=== PATIENT | male | born 1975 | race Caucasian/White ===

== ENCOUNTER 2023-10-06 08:22 | Emergency (ER) | payer BC ==
[~2023-10-06] VITALS: Ht 182.9 cm; Wt 105.0 kg
[2023-10-06 09:37] LABS: Urine Bacteria None Seen /hpf (None Seen)
[2023-10-06 10:08] VITALS: TEMP 97.8
[2023-10-06 10:31] LABS: Urine Blood 1+ /uL (Negative); Urine Clarity Clear (Clear); Urine Color Light-Yellow (Yellow); Urine Protein, UAD 1+ (Negative); Urine Specific Gravity 1.026 (1.001-1.035); Urine Urobilinogen Normal (Negative); Urine WBC 167 /hpf (0 - 3)
[2023-10-06] MEDS ORDERED: cefTRIAXone SOD 1,000 MG VL IM ONE (10:45)
[2023-10-06] MEDS ORDERED: METOPROLOL TARTRATE 50 MG TAB PO ONE (10:45)
[2023-10-06] MEDS: InsuLIN REG 1unit/0.01ml Soln (100units/ml) SC ONE (10:56)
[2023-10-06] MEDS ORDERED: LABETALOL HCL 20 MG/4 ML VL IV ONE (11:00)
[2023-10-06] MEDS: SODIUM CHLORIDE 0.9% 1,000 ML IV ONE (11:14)
[2023-10-06 11:19] LABS: Basophils # (auto) 0.1 10 ^3/uL (0-0.2); Eosinophils # (auto) 0.1 10 ^3/uL (0-0.8); Hematocrit 47.9 % (41.0-53.0); Hemoglobin 16.4 g/dL (13.5-17.5); Lymphocytes # (auto) 1.2 10 ^3/uL (0.4-5.4); Lymphocytes % (auto) 13.2 % (10.0-50.0); Mean Corpuscular Hemoglobin 30.6 pg (28.0-32.0); Mean Corpuscular Hgb Conc. 34.1 g/dL (32.0-36.0); Mean Corpuscular Volume 89.7 fL (80.0-100.0); Monocytes # (auto) 0.8 10 ^3/uL (0-1.3); Monocytes % (auto) 8.8 % (0.0-12.0); Neutrophils # (auto) 6.9 10 ^3/uL (1.6-8.6); Nucleated Red Blood Cells % 0.1 %; Platelet Count (auto) 356 10^3/uL (140-450); Red Blood Cells 5.35 10^6/uL (4.5-5.90); Red Cell Distribution Width 13.7 % (11.8-14.3); White Blood Cell 9.1 10^3/uL (4.4-10.8)
[2023-10-06] MEDS: cefTRIAXone 1GM/50ML D5W 50 ML IV ONE (11:26)
[2023-10-06] MEDS: LABETALOL HCL 20 MG/4 ML VL IV ONE ×2 (11:28→12:20)
[2023-10-06 11:44] LABS: Chloride 100 mmol/L (98-107); Potassium 3.6 mmol/L (3.5-5.1); Sodium 133 mmol/L (136-145)
[2023-10-06 11:45] LABS: Anion Gap 7 (5-15); Calcium 9.8 mg/dL (8.7-10.4); Carbon Dioxide 26 mmol/L (20-30)
[2023-10-06 11:50] LABS: BUN/Creatinine Ratio 11.9 (10.0-20.0); Blood Urea Nitrogen 10 mg/dL (9-23); Glucose 290 mg/dL (74-106)
[2023-10-06] MEDS: InsuLIN REG 1unit/0.01ml Soln (100units/ml) IV ONE (12:41)
[2023-10-06 13:06] VITALS: BP 138/96; PULSE 99; RESP 16; O2SAT 98
[2023-10-06] MEDS ORDERED: CIPR-173 PO (13:10)
[2023-10-06] MEDS ORDERED: MET50T PO (13:10)
[2023-10-06] MEDS ORDERED: METF-370 PO (13:10)
== END 2023-10-06 13:09 | disposition home or self-care (01) ==
LOC: ER 08:22
DX: N39.0 Urinary tract infection, site not specified (principal); E11.9 Type 2 diabetes mellitus without complications; I10 Essential (primary) hypertension; Z79.899 Other long term (current) drug therapy
CPT/HCPCS: 36415; 80048; 81001; 82962; 83036; 85025; 96365; 96375; 96376; 99284; J0696; J1815; J7030

== ENCOUNTER 2023-10-17 09:03 | Inpatient (IN) | payer BC ==
[~2023-10-17] VITALS: Ht 182.9 cm; Wt 101.6 kg
[~2023-10-17 09:03] MED LIST: CIPR-173 PO; MET50T PO; METF-370 PO
[2023-10-17 10:16] LABS: Urine Bacteria FEW /hpf (None Seen); Urine Blood Negative /uL (Negative); Urine Clarity Clear (Clear); Urine Color Light-Yellow (Yellow); Urine Protein, UAD Negative (Negative); Urine Specific Gravity 1.008 (1.001-1.035); Urine Urobilinogen Normal (Negative); Urine WBC 6 /hpf (0 - 3)
[2023-10-17 10:47] LABS: Basophils # (auto) 0.1 10 ^3/uL (0-0.2); Basophils % (auto) 0.8 % (0.0-2.0); Eosinophils # (auto) 0.1 10 ^3/uL (0-0.8); Eosinophils % (auto) 1.1 % (0.0-7.0); Hematocrit 47.6 % (41.0-53.0); Hemoglobin 16.2 g/dL (13.5-17.5); Lymphocytes # (auto) 1.5 10 ^3/uL (0.4-5.4); Lymphocytes % (auto) 11.4 % (10.0-50.0); Mean Corpuscular Hemoglobin 30.2 pg (28.0-32.0); Mean Corpuscular Hgb Conc. 34.1 g/dL (32.0-36.0); Mean Corpuscular Volume 88.5 fL (80.0-100.0); Monocytes # (auto) 0.9 10 ^3/uL (0-1.3); Monocytes % (auto) 6.6 % (0.0-12.0); Neutrophils # (auto) 10.7 10 ^3/uL (1.6-8.6); Neutrophils % (auto) 80.1 % (37.0-80.0); Nucleated Red Blood Cells % 0.1 %; Platelet Count (auto) 362 10^3/uL (140-450); Red Blood Cells 5.38 10^6/uL (4.5-5.90); Red Cell Distribution Width 12.8 % (11.8-14.3); White Blood Cell 13.3 10^3/uL (4.4-10.8)
[2023-10-17 11:01] LABS: Alanine Aminotransferase 14 U/L (7-40); Alkaline Phosphatase 110 U/L (46-116); Anion Gap 10 (5-15); Aspartate Aminotransferase 8 U/L (13-40); BUN/Creatinine Ratio 10.5 (10.0-20.0); Blood Urea Nitrogen 9 mg/dL (9-23); Carbon Dioxide 26 mmol/L (20-30); Chloride 98 mmol/L (98-107); Glucose 331 mg/dL (74-106); Potassium 3.6 mmol/L (3.5-5.1); Sodium 134 mmol/L (136-145)
[2023-10-17 11:02] LABS: Albumin 4.6 g/dL (3.2-4.8); Bilirubin, Total 0.8 mg/dL (0.2-1.0); Total Protein 8.2 g/dL (5.7-8.2)
[2023-10-17] MEDS: IOHEXOL 300 MG/ML 100ML BOTTLE IJ ONE (11:21)
[2023-10-17] MEDS ORDERED: HYDROmorphone HCL 2 MG/ML VL/or syr IV PRN (13:45)
[2023-10-17] MEDS ORDERED: DEXTROSE (50%) 50ML SYRG IV PRN (13:45)
[2023-10-17] MEDS ORDERED: ONDANSETRON HCL 4 MG/2 ML VIAL IV PRN (13:45)
[2023-10-17] MEDS ORDERED: ACETAMINOPHEN 325 MG TAB PO PRN (13:45)
[2023-10-17] MEDS: cefTRIAXone 1GM/50ML D5W 50 ML IV ONE (13:55)
[2023-10-17] MEDS: SODIUM CHLOR 0.9% PF (SALINE LOCK) 10ML VIAL/SYR IV SCH (14:00)
[2023-10-17] MEDS: CIPROFLOXACIN 400MG/200ML 200 ML IV SCH (14:00)
[2023-10-17 16:00] VITALS: PULSE 116; RESP 16; O2SAT 96
[2023-10-17] MEDS: InsuLIN REG 1unit/0.01ml Soln (100units/ml) SC SCH (17:00)
[2023-10-17] MEDS: ACCU-CHEK COMFORT CURVE STRIP VI SCH (17:00)
[2023-10-17] MEDS: HYDROcodone-ACET 5/325MG TAB PO PRN (18:25)
[2023-10-17 22:37] VITALS: PULSE 112; RESP 15; O2SAT 94
[2023-10-17 23:37] VITALS: BP 146/85; PULSE 112; RESP 15; TEMP 98.5; O2SAT 96
[2023-10-18] VITALS (7 sets, daily range): BP systolic 125–154; BP diastolic 82–95; PULSE 89–105; RESP 14–18; TEMP 97.6–98.6; O2SAT 92–97
[2023-10-18 08:07] LABS: Prostate Specific Antigen 0.6 ng/mL (0.0-4.0)
[2023-10-18 11:07] LABS: PSA Free 0.04 ng/mL
[2023-10-18] MEDS: cefTRIAXone 2GM/50ML D5W 50 ML IV SCH (11:56)
[2023-10-18 13:37] LABS: Chloride 99 mmol/L (98-107); Potassium 3.4 mmol/L (3.5-5.1); Sodium 134 mmol/L (136-145)
[2023-10-18 13:38] LABS: Anion Gap 5 (5-15); Calcium 9.4 mg/dL (8.7-10.4); Carbon Dioxide 30 mmol/L (20-30)
[2023-10-18 13:43] LABS: BUN/Creatinine Ratio 11.1 (10.0-20.0); Blood Urea Nitrogen 8 mg/dL (9-23); Glucose 291 mg/dL (74-106)
[2023-10-19] VITALS (8 sets, daily range): BP systolic 135–147; BP diastolic 81–94; PULSE 88–102; RESP 16–19; TEMP 97.8–99.2; O2SAT 91–97
[2023-10-19] MEDS: DOCUSATE SOD 100 MG CAP PO PRN (00:13)
[2023-10-19] MEDS: MORPHINE SULFATE INJ 2 MG/ml SYRG IV PRN (01:49)
[2023-10-19 07:33] LABS: Creatinine, Urine 38.16 mg/dL (30.0-125.0)
[2023-10-19] MEDS: DOCUSATE SOD 100 MG CAP PO SCH (13:45)
[2023-10-19] MEDS: SENNA 8.6 MG TAB PO SCH (21:07)
[2023-10-20] VITALS (7 sets, daily range): BP systolic 128–145; BP diastolic 77–96; PULSE 93–107; RESP 16–20; TEMP 98.2–98.6; O2SAT 93–96
[2023-10-20] MEDS: LACTULOSE 20Gm/30ML SOLN PO PRN (01:50)
[2023-10-20] MEDS ORDERED: HYDR-4902 PO (10:34)
[2023-10-20] MEDS ORDERED: NALO4SPR2 (10:34)
[2023-10-20] MEDS ORDERED: CEFD300C2 PO (10:34)
[2023-10-20] MEDS: BISACODYL 10 MG RECT SUPP PR ONE (11:30)
[2023-10-20] MEDS ORDERED: DEXTROSE (50%) 50ML SYRG IV PRN (17:15)
[2023-10-20] MEDS: glipiZIDE 5 MG TAB PO SCH (17:53)
[2023-10-20] MEDS: ACCU-CHEK COMFORT CURVE STRIP VI SCH (17:53)
[2023-10-20] MEDS: InsuLIN REG 1unit/0.01ml Soln (100units/ml) SC SCH ×2 (17:59→21:55)
[2023-10-20] MEDS: INSULIN LANTUS (GLARGINE) 1 /0.01ml (100units/ml) SC SCH (21:55)
[2023-10-21] VITALS (7 sets, daily range): BP systolic 127–154; BP diastolic 82–90; PULSE 84–99; RESP 18–20; TEMP 97.6–98.3; O2SAT 92–98
[2023-10-21] MEDS ORDERED: GLIP5TAB21 PO (14:16)
== END 2023-10-21 13:10 | disposition home or self-care (01) | DRG 872 ==
LOC: ER 09:03 → OVERFLOW 13:45 → EAST 21:45
PROVIDERS: ADMIT Internal Medicine; ATTEND Internal Medicine
DX: A41.9 Sepsis, unspecified organism (principal); N41.2 Abscess of prostate; N13.30 Unspecified hydronephrosis; I10 Essential (primary) hypertension; E11.65 Type 2 diabetes mellitus with hyperglycemia; R33.9 Retention of urine, unspecified; K59.00 Constipation, unspecified; N36.8 Other specified disorders of urethra
CPT/HCPCS: 36415; 74176; 74177; 80048; 80053; 81001; 82570; 82962; 84154; 84300; 85025; 87040; 87086; G0378; J1815

== ENCOUNTER 2023-11-16 06:29 | Inpatient (IN) | payer BC ==
[~2023-11-16] VITALS: Ht 182.9 cm; Wt 100.7 kg
[2023-11-16] VITALS (20 sets, daily range): BP systolic 113–144; BP diastolic 73–92; PULSE 91–104; RESP 12–19; TEMP 97.7–98.6; O2SAT 92–96
[~2023-11-16 06:29] MED LIST changes: +CEFD300C2 PO; -CIPR-173 PO; +GLIP5TAB21 PO; +HYDR-4902 PO; +NALO4SPR2
[2023-11-16] MEDS ORDERED: HEPARIN DRIP/D5W 100UNITS/ML 250 ML IV SCH (06:45)
[2023-11-16] MEDS: ASPirin 81 mg TAB PO ONE (06:59)
[2023-11-16] MEDS: HEPARIN SODIUM (PORCINE) 5000 UNITS/ML 1ML VIAL IV ONE (06:59)
[2023-11-16 07:05] LABS: Basophils # (auto) 0.1 10 ^3/uL (0-0.2); Basophils % (auto) 0.4 % (0.0-2.0); Eosinophils # (auto) 0.2 10 ^3/uL (0-0.8); Eosinophils % (auto) 1.3 % (0.0-7.0); Hematocrit 43.7 % (41.0-53.0); Hemoglobin 14.9 g/dL (13.5-17.5); Lymphocytes # (auto) 1.7 10 ^3/uL (0.4-5.4); Lymphocytes % (auto) 13.3 % (10.0-50.0); Mean Corpuscular Hemoglobin 29.6 pg (28.0-32.0); Mean Corpuscular Hgb Conc. 34.2 g/dL (32.0-36.0); Mean Corpuscular Volume 86.6 fL (80.0-100.0); Monocytes # (auto) 0.9 10 ^3/uL (0-1.3); Monocytes % (auto) 7.1 % (0.0-12.0); Neutrophils # (auto) 10.2 10 ^3/uL (1.6-8.6); Neutrophils % (auto) 77.9 % (37.0-80.0); Platelet Count (auto) 379 10^3/uL (140-450); Red Blood Cells 5.04 10^6/uL (4.5-5.90); White Blood Cell 13.1 10^3/uL (4.4-10.8)
[2023-11-16] MEDS: IODIXANOL 320MG/ML 100ML BTL IV ONE ×2 (07:08→08:10)
[2023-11-16 07:09] LABS: Chloride 97 mmol/L (98-107); Potassium 3.5 mmol/L (3.5-5.1); Sodium 131 mmol/L (136-145)
[2023-11-16 07:10] LABS: Anion Gap 9 (5-15); Carbon Dioxide 25 mmol/L (20-31)
[2023-11-16] MEDS: fentaNYL CITRATE 100 MCG/2 ML VL ONE (07:10)
[2023-11-16] MEDS: HEPARIN SODIUM (PORCINE) 5000 UNITS/ML 1ML VIAL ONE (07:10)
[2023-11-16] MEDS: MIDAZOLAM HCL 2MG/2ML 2ml VIAL (1mg/ml) ONE (07:10)
[2023-11-16] MEDS: VERAPAMIL 2.5MG/ML INJ 2ML VIAL IV ONE (07:10)
[2023-11-16] MEDS: ANGIOMAX 250 MG VIAL IV ONE (07:11)
[2023-11-16] MEDS: SODIUM CHL 0.9% 50 ML ONE (07:11)
[2023-11-16 07:16] LABS: BUN/Creatinine Ratio 10.5 (10.0-20.0); Blood Urea Nitrogen 9 mg/dL (9-23); Glucose 306 mg/dL (74-106)
[2023-11-16] MEDS: LIDOCAINE 2%HCL (LOCAL ANESTH.) INJ 20ML MDV ONE (07:16)
[2023-11-16] MEDS: MORPHINE SULFATE 4 MG/ML SYR/VIAL ONE (07:31)
[2023-11-16 07:33] LABS: INR 1.12 (0.9-1.15); Partial Thromboplastin Time 30.2 SEC (24.5-34.5); Prothrombin Time 11.8 sec (9.3-11.8)
[2023-11-16] MEDS: EPINEPHrine HCL 1 MG/10 ML SYRG ONE (08:10)
[2023-11-16] MEDS: ATROPINE SULF 1 MG/10ml SYR ONE (08:10)
[2023-11-16] MEDS: METOPROLOL TARTRATE 1MG/1ML-5ML VIAL IV ONE (08:10)
[2023-11-16] MEDS: TICAGRELOR 90 MG TAB ONE (08:11)
[2023-11-16] MEDS ORDERED: NITROGLYCERIN 0.4 MG SL TAB SL PRN (08:30)
[2023-11-16] MEDS ORDERED: MORPHINE SULFATE INJ 2 MG/ml SYRG IV PRN (08:30)
[2023-11-16] MEDS ORDERED: ACETAMINOPHEN 500 MG TAB PO PRN (08:30)
[2023-11-16] MEDS: TICAGRELOR 90 MG TAB PO SCH (10:00)
[2023-11-16] MEDS: ASPirin 325 MG TAB PO ONE (10:11)
[2023-11-16] MEDS: KETOROLAC TROMETH 30 MG/ML 1ML VIAL ONE (12:21)
[2023-11-16] MEDS: KETOROLAC TROMETH 60MG/2ML VIAL IM ONE (12:25)
[2023-11-16] MEDS: ATORVASTATIN 20 MG TAB PO SCH (12:27)
[2023-11-16] MEDS: METOPROLOL SUCCINATE XL 50 MG TAB PO SCH (12:27)
[2023-11-16] MEDS: LISINOPRIL 5 MG TAB PO SCH (12:28)
[2023-11-16] MEDS ORDERED: DEXTROSE (50%) 50ML SYRG IV PRN (15:30)
[2023-11-16] MEDS ORDERED: TRAM-626 PO (16:45)
[2023-11-16] MEDS: cefTRIAXone 1GM/50ML D5W 50 ML IV SCH (17:03)
[2023-11-16] MEDS: HYDROcodone-ACET 7.5/325MG TAB PO PRN (17:04)
[2023-11-16] MEDS: ACCU-CHEK COMFORT CURVE STRIP VI SCH (18:14)
[2023-11-16] MEDS: InsuLIN REG 1unit/0.01ml Soln (100units/ml) SC SCH ×2 (18:15→22:00)
[2023-11-16] MEDS: MORPHINE SULFATE INJ 2 MG/ml SYRG IV PRN (21:24)
[2023-11-17] VITALS (9 sets, daily range): BP systolic 106–125; BP diastolic 68–80; PULSE 87–99; RESP 14–18; TEMP 97.7–98.7; O2SAT 94–100
[2023-11-17] MEDS: ASPirin 81 mg TAB PO SCH (09:06)
[2023-11-17] MEDS: MUPIROCIN 2% OINT 15gm or 22gm FOR MRSA NARES EACHNOSTRI SCH (20:52)
[2023-11-17] MEDS: INSULIN LANTUS (GLARGINE) 1 /0.01ml (100units/ml) SC SCH (21:02)
[2023-11-18] VITALS (9 sets, daily range): BP systolic 110–119; BP diastolic 71–79; PULSE 71–98; RESP 14–18; TEMP 97.6–99.6; O2SAT 95–98
[2023-11-18 08:07] LABS: PSA Free 0.02 ng/mL; Prostate Specific Antigen 0.4 ng/mL (0.0-4.0)
[2023-11-18] MEDS: ENOXAPARIN SOD 40 MG/0.4 ML SYRINGE SC SCH (16:30)
[2023-11-18 19:17] LABS: Basophils # (auto) 0.1 10 ^3/uL (0-0.2); Basophils % (auto) 0.7 % (0.0-2.0); Eosinophils # (auto) 0.1 10 ^3/uL (0-0.8); Eosinophils % (auto) 1.4 % (0.0-7.0); Hematocrit 42.2 % (41.0-53.0); Hemoglobin 14.2 g/dL (13.5-17.5); Lymphocytes # (auto) 1.6 10 ^3/uL (0.4-5.4); Lymphocytes % (auto) 15.6 % (10.0-50.0); Mean Corpuscular Hgb Conc. 33.7 g/dL (32.0-36.0); Monocytes # (auto) 0.9 10 ^3/uL (0-1.3); Monocytes % (auto) 8.6 % (0.0-12.0); Neutrophils # (auto) 7.7 10 ^3/uL (1.6-8.6); Neutrophils % (auto) 73.7 % (37.0-80.0); Platelet Count (auto) 347 10^3/uL (140-450); Red Blood Cells 4.91 10^6/uL (4.5-5.90); Red Cell Distribution Width 13.5 % (11.8-14.3); White Blood Cell 10.5 10^3/uL (4.4-10.8)
[2023-11-18 19:27] LABS: Chloride 102 mmol/L (98-107); Sodium 135 mmol/L (136-145)
[2023-11-18 19:28] LABS: Anion Gap 6 (5-15); Carbon Dioxide 27 mmol/L (20-31)
[2023-11-18 19:33] LABS: BUN/Creatinine Ratio 10.9 (10.0-20.0); Blood Urea Nitrogen 7 mg/dL (9-23)
[2023-11-18 19:37] LABS: Glucose 178 mg/dL (74-106)
[2023-11-19] VITALS (8 sets, daily range): BP systolic 111–131; BP diastolic 70–79; PULSE 80–93; RESP 16–18; TEMP 97.5–98.9; O2SAT 96–98
[2023-11-20] VITALS (9 sets, daily range): BP systolic 112–145; BP diastolic 73–87; PULSE 74–91; RESP 16–24; TEMP 98–99.5; O2SAT 94–99
[2023-11-20] MEDS ORDERED: LACTULOSE 20Gm/30ML SOLN PO PRN (16:45)
[2023-11-20] MEDS: SENNA 8.6 MG TAB PO SCH (21:33)
[2023-11-20] MEDS: DOCUSATE SOD 100 MG CAP PO SCH (21:33)
[2023-11-21] VITALS (8 sets, daily range): BP systolic 117–135; BP diastolic 72–85; PULSE 75–104; RESP 17–18; TEMP 98.1–98.6; O2SAT 94–97
[2023-11-21] MEDS ORDERED: fentaNYL Drip 2500mCg/250mlNS 250 ML IV ONE (08:57)
[2023-11-22] VITALS (8 sets, daily range): BP systolic 119–137; BP diastolic 70–88; PULSE 83–104; RESP 16–18; TEMP 97.9–98.4; O2SAT 95–99
[2023-11-22] MEDS: TEMAZEPAM 15 MG CAP ONE (01:13)
[2023-11-22] MEDS: TEMAZEPAM 15 MG CAP PO ONE (01:15)
[2023-11-22 17:12] LABS: Alanine Aminotransferase 43 U/L (7-40); Albumin 4.1 g/dL (3.2-4.8); Alkaline Phosphatase 108 U/L (46-116); Anion Gap 5 (5-15); Aspartate Aminotransferase 33 U/L (13-40); BUN/Creatinine Ratio 10.8 (10.0-20.0); Bilirubin, Total 0.3 mg/dL (0.2-1.0); Blood Urea Nitrogen 8 mg/dL (9-23); Calcium 9.7 mg/dL (8.7-10.4); Carbon Dioxide 27 mmol/L (20-31); Chloride 103 mmol/L (98-107); Glucose 273 mg/dL (74-106); Potassium 4.2 mmol/L (3.5-5.1); Sodium 135 mmol/L (136-145); Total Protein 7.4 g/dL (5.7-8.2)
[2023-11-23] VITALS (9 sets, daily range): BP systolic 109–140; BP diastolic 73–87; PULSE 81–90; RESP 16–18; TEMP 36.9; O2SAT 94–98
[2023-11-23 07:07] LABS: Basophils # (auto) 0.1 10 ^3/uL (0-0.2); Basophils % (auto) 1.2 % (0.0-2.0); Eosinophils # (auto) 0.3 10 ^3/uL (0-0.8); Eosinophils % (auto) 3.3 % (0.0-7.0); Hematocrit 39.2 % (41.0-53.0); Hemoglobin 13.1 g/dL (13.5-17.5); Lymphocytes # (auto) 1.9 10 ^3/uL (0.4-5.4); Lymphocytes % (auto) 23.4 % (10.0-50.0); Mean Corpuscular Hemoglobin 28.7 pg (28.0-32.0); Mean Corpuscular Hgb Conc. 33.5 g/dL (32.0-36.0); Mean Corpuscular Volume 85.7 fL (80.0-100.0); Monocytes # (auto) 0.6 10 ^3/uL (0-1.3); Monocytes % (auto) 7.5 % (0.0-12.0); Neutrophils # (auto) 5.2 10 ^3/uL (1.6-8.6); Neutrophils % (auto) 64.6 % (37.0-80.0); Platelet Count (auto) 371 10^3/uL (140-450); Red Blood Cells 4.57 10^6/uL (4.5-5.90); Red Cell Distribution Width 13.3 % (11.8-14.3)
[2023-11-23] MEDS ORDERED: BLOO1KIT60 XX (16:25)
[2023-11-23] MEDS ORDERED: ATOR20TA50 PO (16:25)
[2023-11-23] MEDS ORDERED: ASPI-325 PO (16:25)
[2023-11-23] MEDS ORDERED: INSLANTI SC (16:25)
[2023-11-23] MEDS ORDERED: TICA90TA PO (16:25)
[2023-11-23] MEDS ORDERED: INSU-567 XX (16:25)
[2023-11-23] MEDS ORDERED: LISI-275 PO (16:25)
[2023-11-23] MEDS ORDERED: METO-6 PO (16:25)
[2023-11-23] MEDS ORDERED: HYDR-4902 PO (16:26)
[2023-11-23] MEDS ORDERED: METF-370 PO (16:30)
[2023-11-23] MEDS ORDERED: DOCU-94 PO (16:30)
[2023-11-23] MEDS ORDERED: GLIP5TAB21 PO (16:30)
[2023-11-23] MEDS ORDERED: SENN-58 PO (16:30)
== END 2023-11-23 23:15 | disposition home or self-care (01) | DRG 322 ==
LOC: ER 06:29 → TELE 08:32 → TELE-CENTR 15:25
PROVIDERS: ADMIT Internal Medicine; ATTEND Internal Medicine
PROC: 4A023N7 Measurement of Cardiac Sampling and Pressure, Left Heart, Percutaneous Approach (ICD-10-PCS; principal; 2023-11-16)
PROC: 027035Z Dilation of Coronary Artery, One Artery with Two Drug-eluting Intraluminal Devices, Percutaneous Approach (ICD-10-PCS; 2023-11-16)
PROC: 02C03ZZ Extirpation of Matter from Coronary Artery, One Artery, Percutaneous Approach (ICD-10-PCS; 2023-11-16)
PROC: B211YZZ Fluoroscopy of Multiple Coronary Arteries using Other Contrast (ICD-10-PCS; 2023-11-16)
PROC: B215YZZ Fluoroscopy of Left Heart using Other Contrast (ICD-10-PCS; 2023-11-16)
DX: I21.09 ST elevation (STEMI) myocardial infarction involving other coronary artery of anterior wall (principal); N41.2 Abscess of prostate; N13.2 Hydronephrosis with renal and ureteral calculous obstruction; E78.5 Hyperlipidemia, unspecified; E11.9 Type 2 diabetes mellitus without complications; F41.9 Anxiety disorder, unspecified; I10 Essential (primary) hypertension; K59.00 Constipation, unspecified; N42.83 Cyst of prostate; Z82.49 Family history of ischemic heart disease and other diseases of the circulatory system; Z79.4 Long term (current) use of insulin
CPT/HCPCS: 36415; 71045; 74176; 80048; 80053; 82962; 83735; 84154; 84484; 85025; 85610; 85730; 87081; 93005; 93306; 96374; 96375; 99152; 99291; C1887; G0378; J1815; J1885; J2250; Q9967

== ENCOUNTER 2024-01-28 22:26 | Inpatient (IN) | payer BC ==
[~2024-01-28] VITALS: Ht 182.9 cm; Wt 102.5 kg
[~2024-01-28 22:26] MED LIST changes: +ASPI-325 PO; +ATOR20TA50 PO; +BLOO1KIT60 XX; -CEFD300C2 PO; +DOCU-94 PO; +INSLANTI SC; +INSU-567 XX; +LISI-275 PO; -MET50T PO; +METO-6 PO; -NALO4SPR2; +SENN-58 PO; +TICA90TA PO
--- NOTE | 2024-01-28 22:48 | ED.PDOC ---
HPI Comments 48-year-old male presents with a chief complaint of SOB, Palpitations, and Chest Pain x onset 1 hour ago. Patient reports that he feels chest heaviness in the sternal aspect of his chest, non-radiating, and reports that he feels like his heart is beating extra and also skipping beats. Patient describes sensation as a "pounding" thump in his chest. Patient reports the he had stents placed in November secondary to an STEMI. No other symptoms or modifying factors present at this time. Chief Complaint: Shortness of Breath Time Seen by MD: 22:41 Primary Care Provider: PRESTON Reviewed Notes: Medications, Allergies Allergies: Coded Allergies: NO KNOWN ALLERGIES (Unverified , 10/06/23) Home Meds Active Scripts Glipizide (Glipizide) 5 Mg Tab, 1 TAB PO DAILY, #90 TAB 3 Refills Prov:DULCE HOPKINS MD 11/23/23 Senna (Senokot) 8.6 Mg Tab, 2 TAB PO HSPRN PRN, #40 TAB Prov:DULCE HPOKINS MD 11/23/23 Docusate Sodium (Colace) 100 Mg Cap, 1 CAP PO BID PRN, #30 CAP Prov:DULCE HOPKINS MD 11/23/23 Metformin Hydrochloride (Metformin Hcl) 500 Mg Tab, 1 TAB PO BID, #180 TAB 1 Refill Prov:DULCE HOPKINS MD 11/23/23 Hydrocodone-Acetaminophen (Hydrocodone Bitartrate/AC 5-325 mg) 1 Tab Tab, 1 TAB PO Q8HP PRN, #20 % Prov:DULCE HOPKINS MD 11/23/23 Blood Glucose Monitoring Suppl (D-Care Glucometer Kit/Glu W/Device) 1 Kit Kit, KIT XX, #1 Prov:DULCE HOPKINS MD 11/23/23 Insulin Syringe/Needle U-100 (ADVOCATE INSULIN SYRINGE/) 0.5 Mg/31 G Mis, MG XX HS, #90 Prov:DULCE HOPKINS MD 11/23/23 Ticagrelor Base (BRILINTA) 90 Mg Tab, 90 MG PO BID, #180 TAB Prov:DULCE HOPKINS MD 11/23/23 Metoprolol Succinate (Toprol Xl) 50 Mg Tab, 50 MG PO DAILY, #90 TAB Prov:DULCE HOPKINS MD 11/23/23 Lisinopril (Lisinopril) 5 Mg Tab, 5 MG PO DAILY, #90 TAB Prov:DULCE HOPKINS MD 11/23/23 Insulin Glargine (Lantus) 100 Unit/Ml Inj, 15 UNITS SC HS for 90 Days, #120 INJ Prov:DULCE HOPKINS MD 11/23/23 Atorvastatin Calcium (ATORVASTATIN CALCIUM) 20 Mg Tab, 40 MG PO DAILY, #90 TAB Prov:DULCE HOPKINS MD 11/23/23 Aspirin (Aspirin Low Dose) 81 Mg Tab, 81 MG PO DAILY, #90 TAB Prov:DULCE HOPKINS MD 11/23/23 Information Source: Patient Mode of Arrival: Ambulatory Severity: Moderate Timing: Hours Duration: Since onset Prehospital treatment: None Location: Substernal Radiation: No Radiation Quality: Heavy Onset: At Rest Cardiac Risk Factors: Diabetes PE Risk Factors: None History of: [place] Past Medical History PAST MEDICAL HISTORY: DM, HTN, [place] Surgical History: Denies all surgeries Family History Family History: Reviewed,noncontributory to illness Social History Smoker: Non-Smoker Alcohol: Denies ETOH Use Drugs: Denies Drug Use Lives In: Home Constitutional: denies: chills, diaphoresis, fatigue, fever, malaise, sweats, weakness, others EENTM: denies: blurred vision, double vision, ear bleeding, ear discharge, ear drainage, ear pain, ear ringing, eye pain, eye redness, hearing loss, mouth pain, mouth swelling, nasal discharge, nose bleeding, nose congestion, nose pain, photophobia, tearing, throat pain, throat swelling, voice changes, others Respiratory: reports: shortness of breath; denies: cough, hemoptysis, orthopnea, SOB at rest, SOB with excertion, stridor, wheezing, others Cardiovascular: reports: chest pain, palpitations; denies: dizzy spells, diaphoresis, Dyspnea on exertion, edema, irregular heart beat, left arm pain, lightheadedness, PND, syncope, others Gastrointestinal: denies: abdomen distended, abdominal pain, blood streaked bowels, constipated, diarrhea, dysphagia, difficulty swallowing, hematemesis, melena, nausea, poor appetite, poor fluid intake, rectal bleeding, rectal pain, vomiting, others Genitourinary: denies: burning, dysuria, flank pain, frequency, hematuria, incontinence, penile discharge, penile sore, pain, testicle pain, testicle swelling, urgency, others Neurological: denies: dizziness, fainting, headache, left sided numbness, left sided weakness, numbness, paresthesia, pre-existing deficit, right sided numbness, right sided weakness, seizure, speech problems, tingling, tremors, weakness, others Musculoskeletal: denies: back pain, gout, joint pain, joint swelling, muscle pain, muscle stiffness, neck pain, others Integumetry: denies: bruises, change in color, change in hair/nails, dryness, laceration, lesions, lumps, rash, wounds, others Allergic/Immunocompromised: denies: Difficulty Healing, Frequent Infections, Hives, Itching, others Hematologic/Lymphatic: denies: anemia, blood clots, easy bleeding, easy bruising, swollen glands, others Endocrine: denies: excessive hunger, excessive sweating, excessive thirst, excessive urination, flushing, intolerance to cold, intolerance to heat, unexplained weight gain, unexplained weight loss, others Psychiatric: denies: anxiety, bipolar disorder, depression, hopeless, panic disorder, schizophrenia, sleepless, suicidal, others All Other Systems: Reviewed and Negative Physical Exam General Appearance: No Apparent Distress, Normal HEENT: Normal ENT Inspection, Pharynx Normal, TMs Normal Neck: Full Range of Motion, Non-Tender, Normal, Normal Inspection Respiratory: Chest Non-Tender, Lungs Clear, No Accessory Muscle Use, No Respiratory Distress, Normal Breath Sounds Cardiovascular: Extra Beats, Irregular, No Edema, No JVD, No Murmur, Normal Peripheral Pulses Breast Exam: Deferred Gastrointestinal: No Organomegaly, Non Tender, No Pulsatile Mass, Normal Bowel Sounds, Soft Genitalia: Deferred Pelvic: Deferred Rectal: Deferred Extremities: No calf tenderness, Normal capillary refill, Normal inspection, Normal range of motion, Non-tender, No pedal edema Musculoskeletal : Apperance: Normal Neurologic: Alert, guest experience captain II-XII nml as Tested, No Motor Deficits, Normal Affect, Normal Mood, No Sensory Deficits Cerebellar Function: Normal Reflexes: Normal Skin: Dry, Normal Color, Warm Lymphatic: No Adenopathy Was a procedure done? Was a procedure done?: No CP Differential Dx Differential Diagnosis: MAT, PAC's, Pulmonary Embolus Differential Diagnosis: HTN Essential, HTN Encephalopathy Differential Diagnosis: Gastritis, Myocardial Infarction, Pericarditis X-Ray, Labs, Meds, VS Vital Signs Date Time Temp Pulse Resp B/P (MAP) Pulse Ox O2 Delivery O2 Flow Rate FiO2 01/28/24 23:53 99 01/28/24 22:41 111 01/28/24 22:32 98.4 105 18 177/112 (133) 98 Lab Test 01/28/24 23:45 01/28/24 22:52 Range/Units Troponin I High Sensitivity 4 3 L </=54 ng/L White Blood Count 7.8 4.4-10.8 10^3/uL Red Blood Count 5.14 4.5-5.90 10^6/uL Hemoglobin 15.0 13.5-17.5 g/dL Hematocrit 45.0 41.0-53.0 % Mean Corpuscular Volume 87.6 80.0-100.0 fL Mean Corpuscular Hemoglobin 29.2 28.0-32.0 pg Mean Corpuscular Hemoglobin Concent 33.3 32.0-36.0 g/dL Red Cell Distribution Width 15.2 H 11.8-14.3 % Platelet Count 287 140-450 10^3/uL Mean Platelet Volume 7.6 6.9-10.8 fL Neutrophils (%) (Auto) 63.8 37.0-80.0 % Lymphocytes (%) (Auto) 27.2 10.0-50.0 % Monocytes (%) (Auto) 6.7 0.0-12.0 % Eosinophils (%) (Auto) 1.6 0.0-7.0 % Basophils (%) (Auto) 0.7 0.0-2.0 % Neutrophils # (Auto) 5.0 1.6-8.6 10 ^3/uL Lymphocytes # (Auto) 2.1 0.4-5.4 10 ^3/uL Monocytes # (Auto) 0.5 0-1.3 10 ^3/uL Eosinophils # (Auto) 0.1 0-0.8 10 ^3/uL Basophils # (Auto) 0.1 0-0.2 10 ^3/uL Nucleated Red Blood Cells 0.1 % Sodium Level 141 136-145 mmol/L Potassium Level 3.6 3.5-5.1 mmol/L Chloride Level 103 98-107 mmol/L Carbon Dioxide Level 29 20-31 mmol/L Anion Gap 9 5-15 Blood Urea Nitrogen 9 9-23 mg/dL Creatinine 0.80 0.700-1.30 mg/dL Glomerular Filtration Rate Calc 108 >90 mL/min BUN/Creatinine Ratio 11.3 10.0-20.0 Serum Glucose 246 H 74-106 mg/dL Calcium Level 10.0 8.7-10.4 mg/dL B-Type Natriuretic Peptide 26.31 0-100 pg/mL Time of 1ST Reevaluation: 23:11 Reevaluation 1ST: Unchanged Patient Education/Counseling: Diagnosis, Treatment, Prognosis Family Education/Counseling: No Family Present Departure 1 Departure Time of Disposition: 01:43 (Patient presented with chest pain that was concerning for possible STEMI, ACS, PE, Pneumonia, Muscle Strain, COPD, Dissection. Data: 1. I ordered and reviewed the result of at least 3 labs including a CBC, BMP, and Troponin. 2. I independently interpreted the following tests: EKG which shows sinus arrhythmia and Chest X-ray which shows benign chest.Risk:This patient has a high risk of morbidity due to further diagnostic testing or treatment and may suffer from an acute cardiac or respiratory disorder. Workup reveals concern for ACS and patient should be admitted for further workup and possible expert consultation. ) Impression: Primary Impression: Acute chest pain Disposition: ADMITTED INPATIENT Admit to: Med Surg Condition: Serious Critical Care Note Critical Care Time?: Yes Critical care comment: Acute chest pain Authorized and Performed by: Manjit Campo MD Total critical care time: Approximately 34 minutes Due to a high probability of clinically significant, life threatening deterioration, the patient required my highest level of preparedness to intervene emergently and I personally spent this critical care time directly and personally managing the patient. This critical care time included obtaining a history; examining the patient; pulse oximetry; ordering and review of studies; arranging urgent treatment with development of a management plan; evaluation of patient's response to treatment; frequent reassessment; and, discussions with other providers. This critical care time was performed to assess and manage the high probability of imminent, life-threatening deterioration that could result in multi-organ failure. It was exclusive of separately billable procedures and treating other patients and teaching time. Please see my other sections and the rest of the note for further information on patient assessment and treatment. Stability Stability form required: No Heart Score Heart Score: Heart Score Response (Comments) Value History Moderate Suspicious 1 EKG Repolarization Disturb 1 Age 45-64 1 Risk Factors >3 or Hx ASHD 2 Troponin Normal limit 0 Total 5 I personally scribed for MANJIT CAMPO MD ([email or web address]) on 01/28/24 at 22:48. Electronically submitted by Manish Fontanez ([email or web address]). MANJIT CAMPO MD Jan 28, 2024 22:48
[2024-01-28 23:08] LABS: Basophils # (auto) 0.1 10 ^3/uL (0-0.2); Basophils % (auto) 0.7 % (0.0-2.0); Eosinophils # (auto) 0.1 10 ^3/uL (0-0.8); Eosinophils % (auto) 1.6 % (0.0-7.0); Lymphocytes # (auto) 2.1 10 ^3/uL (0.4-5.4); Lymphocytes % (auto) 27.2 % (10.0-50.0); Mean Corpuscular Hemoglobin 29.2 pg (28.0-32.0); Mean Corpuscular Hgb Conc. 33.3 g/dL (32.0-36.0); Mean Corpuscular Volume 87.6 fL (80.0-100.0); Monocytes # (auto) 0.5 10 ^3/uL (0-1.3); Monocytes % (auto) 6.7 % (0.0-12.0); Neutrophils % (auto) 63.8 % (37.0-80.0); Nucleated Red Blood Cells % 0.1 %; Platelet Count (auto) 287 10^3/uL (140-450); Red Blood Cells 5.14 10^6/uL (4.5-5.90); Red Cell Distribution Width 15.2 % (11.8-14.3); White Blood Cell 7.8 10^3/uL (4.4-10.8)
[2024-01-28 23:19] LABS: Chloride 103 mmol/L (98-107); Potassium 3.6 mmol/L (3.5-5.1); Sodium 141 mmol/L (136-145)
[2024-01-28 23:20] LABS: Anion Gap 9 (5-15); Carbon Dioxide 29 mmol/L (20-31)
[2024-01-28 23:26] LABS: BUN/Creatinine Ratio 11.3 (10.0-20.0); Blood Urea Nitrogen 9 mg/dL (9-23); Glucose 246 mg/dL (74-106)
--- NOTE | 2024-01-28 23:27 | DVH ---
CHEST RADIOGRAPH Indication: palpitations Technique: Frontal and lateral view of the chest was obtained Comparison: None FINDINGS: Lines and Tubes: None Lungs: Clear Pleura: No effusion. No pneumothorax. Cardiomediastinal contours: Unremarkable Bones: Unremarkable IMPRESSION: 1. No evidence of acute disease.
[2024-01-29] MEDS ORDERED: ACETAMINOPHEN 325 MG TAB PO PRN (02:45)
[2024-01-29] MEDS ORDERED: NITROGLYCERIN 0.4 MG SL TAB SL PRN (02:45)
[2024-01-29] MEDS ORDERED: MORPHINE SULFATE INJ 2 MG/ml SYRG IV PRN (02:45)
[2024-01-29] MEDS ORDERED: ONDANSETRON HCL 4 MG/2 ML VIAL IV PRN (02:45)
[2024-01-29] MEDS ORDERED: HYDROcodone-ACET 5/325MG TAB PO PRN (02:45)
--- NOTE | 2024-01-29 02:54 | DVHHP2 ---
Admitting Diagnosis: Chest Pain rule out ACS History of Present Illness History Source: Patient Exam Limitations: No limitations HPI Mr. Bernardo Hinojosa is a 48-year-old male presents with a history of DM, Hypertension, [place] who presents with a chief complaint of SOB, Palpitations, and Chest Pain x onset 1 hour ago prior to coming to the hospital. Patient reports that he feels chest heaviness in the sternal aspect of his chest, non-radiating, and reports that he has been having intermittent palpitations with dyspnea. Patient describes sensation as a "pounding" thump in his chest. Patient reports the he had stents placed in November secondary to a STEMI. Patient admitted for further evaluation. Home Meds Active Scripts Glipizide (Glipizide) 5 Mg Tab, 1 TAB PO DAILY, #90 TAB 3 Refills Prov:DULCE HOPKINS MD 11/23/23 Senna (Senokot) 8.6 Mg Tab, 2 TAB PO HSPRN PRN, #40 TAB Prov:DULCE HOPKINS MD 11/23/23 Docusate Sodium (Colace) 100 Mg Cap, 1 CAP PO BID PRN, #30 CAP Prov:DULCE HOPKINS MD 11/23/23 Metformin Hydrochloride (Metformin Hcl) 500 Mg Tab, 1 TAB PO BID, #180 TAB 1 Refill Prov:DULCE HOPKINS MD 11/23/23 Hydrocodone-Acetaminophen (Hydrocodone Bitartrate/AC 5-325 mg) 1 Tab Tab, 1 TAB PO Q8HP PRN, #20 % Prov:DULCE HOPKINS MD 11/23/23 Blood Glucose Monitoring Suppl (D-Care Glucometer Kit/Glu W/Device) 1 Kit Kit, KIT XX, #1 Prov:DULCE HOPKINS MD 11/23/23 Insulin Syringe/Needle U-100 (ADVOCATE INSULIN SYRINGE/) 0.5 Mg/31 G Mis, MG XX HS, #90 Prov:DULCE HOPKINS MD 11/23/23 Ticagrelor Base (BRILINTA) 90 Mg Tab, 90 MG PO BID, #180 TAB Prov:DULCE HOPKINS MD 11/23/23 Metoprolol Succinate (Toprol Xl) 50 Mg Tab, 50 MG PO DAILY, #90 TAB Prov:DULCE HOPKINS MD 10/17/24 Lisinopril (Lisinopril) 5 Mg Tab, 5 MG PO DAILY, #90 TAB Prov:DULCE HOPKINS MD 11/23/23 Insulin Glargine (Lantus) 100 Unit/Ml Inj, 15 UNITS SC HS for 90 Days, #120 INJ Prov:DULCE HOPKINS MD 11/23/23 Atorvastatin Calcium (ATORVASTATIN CALCIUM) 20 Mg Tab, 40 MG PO DAILY, #90 TAB Prov:DULCE HOPKINS MD 11/23/23 Aspirin (Aspirin Low Dose) 81 Mg Tab, 81 MG PO DAILY, #90 TAB Prov:DULCE HOPKINS MD 11/23/23 Past Medical History Cardiac: HTN, [place] Pulmonary: No pertinent Hx Central Nervous System: No pertinent Hx GI: No pertinent Hx Hemotology/Oncology: No pertinent Hx Hepatobiliary: No pertinent Hx Psychiatric: No pertinent Hx Musculoskeletal: No pertinent Hx Rheumotologic: No pertinent Hx Infectious Disease: No peritnent Hx ENT: No pertinent Hx Renal/: No pertinent Hx Endocrine: NIDDM Dermatology: No pertinent Hx Patient Family History: Patient reports no known family medical history. Smoker: No Hx (Negative) Alocohol: None Drugs: None Lives with: With family Domestic Violence: Neg Review of Systems Constitutional: No symptom reported Ears, Nose, & Throat: No symptom reported Eyes: No symptom reported Pulmonary/Respiratory: Dyspnea Cardiovascular: Chest Pain, Palpitations Gastrointestinal: No symptom reported Genitourinary: No symptom reported Musculoskeletal: No symptom reported Skin: No symptom reported Psychiatric: No symptom reported Endocrine: No symptom reported Hemotologic/Lymphatic: No symptom reported H&P Exam Vital Signs Vital Signs Date Time Temp Pulse Resp B/P (MAP) Pulse Ox O2 Delivery O2 Flow Rate FiO2 01/29/24 01:49 98.3 94 16 147/96 (113) 98 98.3 General Appeara: Well developed, Well nourished, Normal Appearance Head Exam: Normal inspection Neck Exam: Normal inspection, Non-tender, Normal alignment Eye Exam: bilateral eye Normal inspection, bilateral eye PERRL, bilateral eye EOMI Ear Exam: bilateral ear Auricle normal Nasal Exam: Normal inspection Mouth: Normal Inspection Pulmonary/Respiratory: Normal inspection, Normal breath sounds, Chest non- tender, Lungs clear Cardiovascular/Chest: Normal inspection, Regular rate, Normal Rhythm Peripheral Pulses: 2+ dorsalis pedis (R), 2+ dorsalis pedis (L), 2+ Radial (R), 2+ Radial (L) Abdominal Exam: Normal bowel sounds, Soft, No tenderness Rectal Exam: Deferred 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: Normal hearing, Normal speech, PERRL Motor/Sensory: Normal sensory function, Normal motor function Neuro/Mental St: Alert, Oriented Appearance: Appropriate appearance, Appropriate insight Eye contact/ Speech: Cooperative, Good eye contact, Normal speech Thoughts/Psych: Normal thought pattern Skin Exam: Normal inspection, Normal color, Warm/dry Labs/Xrays Labs Test 01/29/24 01:51 01/28/24 22:52 Range/Units Troponin I High Sensitivity 4 </=54 ng/L White Blood Count 7.8 4.4-10.8 10^3/uL Red Blood Count 5.14 4.5-5.90 10^6/uL Hemoglobin 15.0 13.5-17.5 g/dL Hematocrit 45.0 41.0-53.0 % Mean Corpuscular Volume 87.6 80.0-100.0 fL Mean Corpuscular Hemoglobin 29.2 28.0-32.0 pg Mean Corpuscular Hemoglobin Concent 33.3 32.0-36.0 g/dL Red Cell Distribution Width 15.2 H 11.8-14.3 % Platelet Count 287 140-450 10^3/uL Mean Platelet Volume 7.6 6.9-10.8 fL Neutrophils (%) (Auto) 63.8 37.0-80.0 % Lymphocytes (%) (Auto) 27.2 10.0-50.0 % Monocytes (%) (Auto) 6.7 0.0-12.0 % Eosinophils (%) (Auto) 1.6 0.0-7.0 % Basophils (%) (Auto) 0.7 0.0-2.0 % Neutrophils # (Auto) 5.0 1.6-8.6 10 ^3/uL Lymphocytes # (Auto) 2.1 0.4-5.4 10 ^3/uL Monocytes # (Auto) 0.5 0-1.3 10 ^3/uL Eosinophils # (Auto) 0.1 0-0.8 10 ^3/uL Basophils # (Auto) 0.1 0-0.2 10 ^3/uL Nucleated Red Blood Cells 0.1 % Sodium Level 141 136-145 mmol/L Potassium Level 3.6 3.5-5.1 mmol/L Chloride Level 103 98-107 mmol/L Carbon Dioxide Level 29 20-31 mmol/L Anion Gap 9 5-15 Blood Urea Nitrogen 9 9-23 mg/dL Creatinine 0.80 0.700-1.30 mg/dL Glomerular Filtration Rate Calc 108 >90 mL/min BUN/Creatinine Ratio 11.3 10.0-20.0 Serum Glucose 246 H 74-106 mg/dL Calcium Level 10.0 8.7-10.4 mg/dL B-Type Natriuretic Peptide 26.31 0-100 pg/mL Assessment/Plan Problem List: (1) Acute chest pain (2) Hypertension (3) Hyperglycemia due to diabetes mellitus Plan 48 yo male with known past medical history of DM, hypertension, [place] presents to the hospital with chest pain, palpitations and shortness of breath. Patient with a heart score of 5 1. Chest pain rule out ACS 2. Palpitations Admit Telemetry unit Cardiology consultation 2D echocardiogram ASA, Statin, serial troponin levels Glucose monitoring ac & hs Coverage with insulin sliding scale analgesic as needed for pain management Discussed all above with patient who verbalizes agreement and understanding of care plan. All questions were answered. Discussed assessment and care plan with supervising MD . Plan discussed with: Patient, Other Code Visit Code Visit Total Time (mins): 45 KRISHNA HARDING Jan 29, 2024 02:54
[2024-01-29] MEDS ORDERED: DEXTROSE (50%) 50ML SYRG IV PRN (03:00)
--- NOTE | 2024-01-29 06:16 | ECG ---
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
--- NOTE | 2024-01-29 06:16 | ECG ---
[facility] Test Date: 2024-01-28 Test Time: 22:41:03 Pat Name: ALEX OH Department: ed Room: [address] [place] [address] A Gender: M Book Author: xenia : 1975 Requested By: MANJIT PATRICIA Order Number: [id number] Reading MD: León Harrell Measurements Intervals [place] Rate: 111 P: 50 MS: 165 QRS: -61 QRSD: 98 T: 16 QT: 342 QTc: 465 Interpretive Statements Sinus tachycardia Ventricular tachycardia, unsustained Left anterior fascicular block Abnormal R-wave progression, late transition Electronically Signed On 01-30-2024 13:07:53 PST by León Harrell Please click the below link to view image of tracing.
--- NOTE | 2024-01-29 06:16 | ECG ---
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
[2024-01-29] MEDS: InsuLIN REG 1unit/0.01ml Soln (100units/ml) SC SCH (07:49)
[2024-01-29] MEDS: ACCU-CHEK COMFORT CURVE STRIP VI SCH (07:49)
[2024-01-29 07:50] VITALS: BP 139/98; PULSE 96; RESP 18; TEMP 97.9; O2SAT 100
[2024-01-29 08:43] LABS: Amphetamine Screen, Urine Neg (NEGATIVE); Barbiturate Scree,Urine Neg (NEGATIVE); Benzodiazephine Screen, Urine Neg (NEGATIVE); Cannabinoid Screen, Urine Neg (NEGATIVE); Cocaine Screen, Urine Neg (NEGATIVE); Opiate Scree,Urine Neg (NEGATIVE); Phencyclidine Screen, Urine Neg (NEGATIVE)
[2024-01-29] MEDS ORDERED: ENOXAPARIN SOD 40 MG/0.4 ML SYRINGE SC SCH (10:00)
[2024-01-29] MEDS ORDERED: ASPirin 81 mg TAB PO SCH (10:00)
[2024-01-29] MEDS ORDERED: FAMOTIDINE 20 MG TAB PO SCH (10:00)
[2024-01-29] MEDS ORDERED: ATORVASTATIN 20 MG TAB PO SCH (22:00)
== END 2024-01-29 10:28 | disposition left against medical advice (07) | DRG 311 ==
LOC: ER 22:26 → TELE 01-29 02:39
PROVIDERS: ADMIT Nurse Practitioner Family; ATTEND Nurse Practitioner Family
DX: I24.9 Acute ischemic heart disease, unspecified (principal); E11.65 Type 2 diabetes mellitus with hyperglycemia; Z53.29 Procedure and treatment not carried out because of patient's decision for other reasons; I10 Essential (primary) hypertension; Z87.891 Personal history of nicotine dependence; Z79.84 Long term (current) use of oral hypoglycemic drugs; I25.2 Old myocardial infarction; Z79.899 Other long term (current) drug therapy; Z79.82 Long term (current) use of aspirin; Z79.891 Long term (current) use of opiate analgesic
CPT/HCPCS: 36415; 71046; 80048; 80307; 82962; 83036; 83880; 84484; 85025; 93005; G0378

== ENCOUNTER 2024-09-02 13:41 | Inpatient (IN) | payer BC ==
[~2024-09-02] VITALS: Ht 182.9 cm; Wt 113.0 kg
[2024-09-02] VITALS (8 sets, daily range): BP systolic 83–113; BP diastolic 54–63; PULSE 101–108; RESP 16–22; TEMP 98.4–99.3; O2SAT 96–97
--- NOTE | 2024-09-02 14:19 | ED.PDOC ---
GI ASSESSMENT HPI Comments 49 y/o M, with PMHx of CO and HTN presents to the ED for CC of blood in stool. Patient states, that he has been experiencing loose bloody stools onset, 0430 this morning (09/02/24). Patient reports, that he feels as if he is "hemorrhaging" whenever he uses the restroom and has had x5 episodes since commencement of symptoms. Patient denies weakness, fatigue, or dizziness. No other symptoms or modifying factors present at this time. Time Seen by MD: 14:10 Primary Care Provider: PRESTON Reviewed Notes: Nurses Notes, Medications, Allergies Allergies: Coded Allergies: NO KNOWN ALLERGIES (Unverified , 10/06/23) Home Meds Active Scripts Glipizide (Glipizide) 5 Mg Tab, 1 TAB PO DAILY, #90 TAB 3 Refills Prov:DULCE HOPKINS MD 11/23/23 Senna (Senokot) 8.6 Mg Tab, 2 TAB PO HSPRN PRN, #40 TAB Prov:DULCE HOPKINS MD 11/23/23 Docusate Sodium (Colace) 100 Mg Cap, 1 CAP PO BID PRN, #30 CAP Prov:DULCE HOPKINS MD 11/23/23 Metformin Hydrochloride (Metformin Hcl) 500 Mg Tab, 1 TAB PO BID, #180 TAB 1 Refill Prov:DULCE HOPKINS MD 11/23/23 Hydrocodone-Acetaminophen (Hydrocodone Bitartrate/AC 5-325 mg) 1 Tab Tab, 1 TAB PO Q8HP PRN, #20 % Prov:DULCE HOPKINS MD 11/23/23 Blood Glucose Monitoring Suppl (D-Care Glucometer Kit/Glu W/Device) 1 Kit Kit, KIT XX, #1 Prov:DULCE HOPKINS MD 11/23/23 Insulin Syringe/Needle U-100 (ADVOCATE INSULIN SYRINGE/) 0.5 Mg/31 G Mis, MG XX HS, #90 Prov:DULCE HOPKINS MD 11/23/23 Ticagrelor Base (BRILINTA) 90 Mg Tab, 90 MG PO BID, #180 TAB Prov:DULCE HOPKINS MD 11/23/23 Metoprolol Succinate (Toprol Xl) 50 Mg Tab, 50 MG PO DAILY, #90 TAB Prov:DULCE HOPKINS MD 11/23/23 Lisinopril (Lisinopril) 5 Mg Tab, 5 MG PO DAILY, #90 TAB Prov:DULCE HOPKINS MD 11/23/23 Insulin Glargine (Lantus) 100 Unit/Ml Inj, 15 UNITS SC HS for 90 Days, #120 INJ Prov:DULCE HOPKINS MD 11/23/23 Atorvastatin Calcium (ATORVASTATIN CALCIUM) 20 Mg Tab, 40 MG PO DAILY, #90 TAB Prov:DULCE HOPKINS MD 11/23/23 Aspirin (Aspirin Low Dose) 81 Mg Tab, 81 MG PO DAILY, #90 TAB Prov:DULCE HOPKINS MD 11/23/23 Information Source: Patient Mode of Arrival: Ambulatory Timing: Hours Duration: Since onset Prehospital treatment: None Quality: None Vomitus: None Stool: Blood Streaked Severity: Moderate Recent: None Recent Hx of: None Pain Location: Suprapubic Modifying Factors: Nothing Associated sign and symptoms: Blood in Stool Past Medical History PAST MEDICAL HISTORY: DM, HTN, CO Surgical History: Denies all surgeries Family History Family History: Reviewed,noncontributory to illness Social History Smoker: Non-Smoker Alcohol: Denies ETOH Use Drugs: Denies Drug Use Lives In: Home Constitutional: denies: chills, diaphoresis, fatigue, fever, malaise, sweats, weakness, others EENTM: denies: blurred vision, double vision, ear bleeding, ear discharge, ear drainage, ear pain, ear ringing, eye pain, eye redness, hearing loss, mouth go n, mouth swelling, nasal discharge, nose bleeding, nose congestion, nose pain, photophobia, tearing, throat pain, throat swelling, voice changes, others Respiratory: denies: cough, hemoptysis, orthopnea, SOB at rest, shortness of breath, SOB with excertion, stridor, wheezing, others Cardiovascular: denies: chest pain, dizzy spells, diaphoresis, Dyspnea on exertion, edema, irregular heart beat, left arm pain, lightheadedness, palpitations, PND, syncope, others Gastrointestinal: reports: abdominal pain, blood streaked bowels; denies: abdomen distended, constipated, diarrhea, dysphagia, difficulty swallowing, hematemesis, melena, nausea, poor appetite, poor fluid intake, rectal bleeding, rectal pain, vomiting, others Genitourinary: denies: burning, dysuria, flank pain, frequency, hematuria, incontinence, penile discharge, penile sore, pain, testicle pain, testicle swelling, urgency, others Neurological: denies: dizziness, fainting, headache, left sided numbness, left sided weakness, numbness, paresthesia, pre-existing deficit, right sided numbness, right sided weakness, seizure, speech problems, tingling, tremors, weakness, others Musculoskeletal: denies: back pain, gout, joint pain, joint swelling, muscle pain, muscle stiffness, neck pain, others Integumetry: denies: bruises, change in color, change in hair/nails, dryness, laceration, lesions, lumps, rash, wounds, others Allergic/Immunocompromised: denies: Difficulty Healing, Frequent Infections, Hives, Itching, others Hematologic/Lymphatic: denies: anemia, blood clots, easy bleeding, easy bruising, swollen glands, others Endocrine: denies: excessive hunger, excessive sweating, excessive thirst, excessive urination, flushing, intolerance to cold, intolerance to heat, unexplained weight gain, unexplained weight loss, others Psychiatric: denies: anxiety, bipolar disorder, depression, hopeless, panic disorder, schizophrenia, sleepless, suicidal, others All Other Systems: Reviewed and Negative Physical Exam General Appearance: Moderate Distress, Normal, Other (pale, diaphoretic ) HEENT: Normal ENT Inspection, Pharynx Normal Neck: Full Range of Motion, Non-Tender, Normal, Normal Inspection Respiratory: Chest Non-Tender, Lungs Clear, No Accessory Muscle Use, No Respiratory Distress, Normal Breath Sounds Cardiovascular: No Edema, No Murmur, No Gallop, Normal Peripheral Pulses, Regular Rate/Rhythm Breast Exam: Deferred Gastrointestinal: No Organomegaly, Non Tender, No Pulsatile Mass, Normal Bowel Sounds, Soft Genitalia: Deferred Pelvic: Deferred Rectal: Deferred Extremities: No calf tenderness, Normal capillary refill, Normal inspection, Normal range of motion, Non-tender, No pedal edema Musculoskeletal : Apperance: Normal Neurologic: Alert, dental intern II-XII nml as Tested, No Motor Deficits, Normal Affect, Normal Mood, No Sensory Deficits Cerebellar Function: Normal Reflexes: Normal Skin: Dry, Normal Color, Warm Lymphatic: No Adenopathy EKG EKG : Pulse Rate (adult): 104 [place]: Normal Block: None Hypertrophy: None ST: Normal Was a procedure done? Was a procedure done?: No GI differential Dx Differential Diagnosis: Diverticular disease, GI hemorrhage, Inflammatory BD, Ischemic Bowel X-Ray, Labs, Meds, VS Vital Signs Date Time Temp Pulse Resp B/P (MAP) Pulse Ox O2 Delivery O2 Flow Rate FiO2 09/02/24 16:02 104 09/02/24 15:48 98.0 104 19 92/48 (63) 96 98.0 09/02/24 15:48 104 19 96 Room Air* 0 21 09/02/24 14:19 104 09/02/24 13:41 96.0 103 16 112/83 (93) 98 96.0 Lab Test 09/02/24 14:29 Range/Units White Blood Count 9.8 4.4-10.8 10^3/uL Red Blood Count 5.04 4.5-5.90 10^6/uL Hemoglobin 14.9 13.5-17.5 g/dL Hematocrit 43.5 41.0-53.0 % Mean Corpuscular Volume 86.2 80.0-100.0 fL Mean Corpuscular Hemoglobin 29.5 28.0-32.0 pg Mean Corpuscular Hemoglobin Concent 34.2 32.0-36.0 g/dL Red Cell Distribution Width 14.5 H 11.8-14.3 % Platelet Count 353 140-450 10^3/uL Mean Platelet Volume 7.4 6.9-10.8 fL Neutrophils (%) (Auto) 79.5 37.0-80.0 % Lymphocytes (%) (Auto) 12.8 10.0-50.0 % Monocytes (%) (Auto) 6.8 0.0-12.0 % Eosinophils (%) (Auto) 0.4 0.0-7.0 % Basophils (%) (Auto) 0.5 0.0-2.0 % Neutrophils # (Auto) 7.8 1.6-8.6 10 ^3/uL Lymphocytes # (Auto) 1.3 0.4-5.4 10 ^3/uL Monocytes # (Auto) 0.7 0-1.3 10 ^3/uL Eosinophils # (Auto) 0 0-0.8 10 ^3/uL Basophils # (Auto) 0.1 0-0.2 10 ^3/uL Nucleated Red Blood Cells 0.1 % Prothrombin Time 11.4 9.3-11.8 sec Prothrombin Time INR 1.08 0.9-1.15 Activated Partial Thromboplast Time 26.9 24.5-34.5 SEC Sodium Level 132 L 136-145 mmol/L Potassium Level 4.4 3.5-5.1 mmol/L Chloride Level 96 L 98-107 mmol/L Carbon Dioxide Level 25 20-31 mmol/L Anion Gap 11 5-15 Blood Urea Nitrogen 18 9-23 mg/dL Creatinine 1.14 0.700-1.30 mg/dL Glomerular Filtration Rate Calc 78 >90 mL/min BUN/Creatinine Ratio 15.8 10.0-20.0 Serum Glucose 361 H 74-106 mg/dL Lactic Acid Level 2.3 *H 0.4-2.0 mmol/L Calcium Level 9.2 8.7-10.4 mg/dL Total Bilirubin 0.8 0.2-1.0 mg/dL Aspartate Amino Transferase (AST) 21 13-40 U/L Alanine Aminotransferase (ALT) 24 7-40 U/L Alkaline Phosphatase 74 46-116 U/L Total Protein 6.1 5.7-8.2 g/dL Albumin 3.9 3.2-4.8 g/dL Time of 1ST Reevaluation: 14:40 Reevaluation 1ST: Unchanged Patient Education/Counseling: Diagnosis, Treatment Family Education/Counseling: Diagnosis, Treatment SEPSIS Sepsis Screen Physician Orders Ct Ab Pel With Iv Con Only (09/02/24 14:11) Vital Signs Date Time Temp Pulse Resp B/P (MAP) Pulse Ox O2 Delivery O2 Flow Rate FiO2 09/02/24 16:02 104 09/02/24 15:48 98.0 104 19 92/48 (63) 96 98.0 09/02/24 15:48 104 19 96 Room Air* 0 21 09/02/24 14:19 104 09/02/24 13:41 96.0 103 16 112/83 (93) 98 96.0 Laboratory Tests Test 09/02/24 14:29 Lactic Acid Level 2.3 mmol/L (0.4-2.0) *H White Blood Count 9.8 10^3/uL (4.4-10.8) Departure 1 Departure Time of Disposition: 16:45 (Patient presented with abdominal pain that was concerning for possible appendicits, gastritis, cholecystitis, colitis, gastroenteritis, sbo, or orther possible surgical emergency. Data: 1. I ordered and reviewed the result of at least 3 labs including a CBC, BMP, and Urinalysis. 2. I independently interpreted the following tests: CT Abdoment and Pelvis is concerning for acute diverticulitis .Risk:This patient has a high risk of morbidity due to further diagnostic testing or treatment and may suffer from an acute abdominal process disorder. Workup reveals acute diverticulitis of bright red blood per rectum and patient should be admitted for further workup. and possible expert consultation. ) Impression: Primary Impression: Acute diverticulitis Additional Impression: Bright red blood per rectum Disposition: ADMITTED INPATIENT Admit to: Med Surg Condition: Serious Critical Care Note Critical Care Time?: Yes Critical care comment: Bright red blood per rectum concern for GI bleed Authorized and Performed by: Manjit Campo MD Total critical care time: Approximately 49 minutes Due to a high probability of clinically significant, life threatening deterioration, the patient required my highest level of preparedness to intervene emergently and I personally spent this critical care time directly and personally managing the patient. This critical care time included obtaining a history; examining the patient; pulse oximetry; ordering and review of studies; arranging urgent treatment with development of a management plan; evaluation of patient's response to treatment; frequent reassessment; and, discussions with other providers. This critical care time was performed to assess and manage the high probability of imminent, life-threatening deterioration that could result in multi-organ failure. It was exclusive of separately billable procedures and treating other patients and teaching time. Please see my other sections and the rest of the note for further information on patient assessment and treatment. Stability Stability form required: No Heart Score Heart Score: Heart Score Response (Comments) Value History N/A 0 EKG N/A 0 Age N/A 0 Risk Factors N/A 0 Troponin N/A 0 Total 0 I personally scribed for MANJIT CAMPO MD ([email or web address]) on 09/02/24 at 14:19. Electronically submitted by Lilliam Santos ([email or web address]). I personally scribed for MANJIT CAMPO MD ([email or web address]) on 09/02/24 at 14:40. Electronically submitted by Lilliam Santos ([email or web address]). MANJIT CAMPO MD Sep 02, 2024 14:19
[2024-09-02 14:40] LABS: Hematocrit 43.5 % (41.0-53.0); Hemoglobin 14.9 g/dL (13.5-17.5); Mean Corpuscular Hemoglobin 29.5 pg (28.0-32.0); Mean Corpuscular Volume 86.2 fL (80.0-100.0); Nucleated Red Blood Cells % 0.1 %
[2024-09-02 15:03] LABS: INR 1.08 (0.9-1.15); Partial Thromboplastin Time 26.9 SEC (24.5-34.5); Prothrombin Time 11.4 sec (9.3-11.8)
[2024-09-02 15:04] LABS: Alanine Aminotransferase 24 U/L (7-40); Albumin 3.9 g/dL (3.2-4.8); Alkaline Phosphatase 74 U/L (46-116); Anion Gap 11 (5-15); BUN/Creatinine Ratio 15.8 (10.0-20.0); Bilirubin, Total 0.8 mg/dL (0.2-1.0); Blood Urea Nitrogen 18 mg/dL (9-23); Calcium 9.2 mg/dL (8.7-10.4); Carbon Dioxide 25 mmol/L (20-31); Potassium 4.4 mmol/L (3.5-5.1); Total Protein 6.1 g/dL (5.7-8.2)
[2024-09-02 15:05] LABS: Chloride 96 mmol/L (98-107); Glucose 361 mg/dL (74-106); Sodium 132 mmol/L (136-145)
[2024-09-02 15:07] LABS: Lactic Acid w/Reflex 2.3 mmol/L (0.4-2.0)
[2024-09-02] MEDS: IOHEXOL 300 MG/ML 100ML BOTTLE IJ ONE (15:48)
--- NOTE | 2024-09-02 16:04 | DVH ---
Indication: abdominal pain, brbpr Technique: CT axial images of the abdomen and pelvis are obtained with intravenous contrast. Coronal and sagittal reformats were obtained. Radiation Dose Information: CTDI volume is 0.07 mGy. Dose-length product is 3.92 mGy*cm Comparison: CT CT AB PEL WITH IV CON ONLY on DOS: 10/17/23 FINDINGS: Lung bases demonstrate no pleural effusion. Adrenal glands, spleen, pancreas unremarkable. Duodenal diverticulum measuring 2 cm. Hepatic steatos is. Cholelithiasis. Kidneys demonstrate no hydronephrosis. Stomach is partially distended. Small bowel loops normal in caliber. Colonic diverticular disease. Extensive wall thickening with surrounding edema and stranding involvin g the sigmoid colon. Normal appendix. There is also mild bowel wall thickening of the descending colo n Abdominal aorta normal in caliber. Atherosclerotic disease. Bladder partially distended. Bladder wall thickening along the superior left aspect of the bladder dome No free pelvic fluid. No inguinal lymp hadenopathy. [id number] bilateral sacroiliac degenerative joint disease. [id number] thoracolumbar degenerative disc disease. L5 pars defects with 3 mm anterolisthesis o f L5 on S1. IMPRESSION: Diverticulitis of the sigmoid colon. Recommend colonoscopy once acute symptoms resolve to exclude un derlying colonic lesion. Bladder wall thickening likely secondary to the adjacent diverticulitis. Recommend continued follow- up to exclude colovesicular fistula. Mild wall thickening of the descending colon which could represent synchronous segment of diverticuli tis, colitis, inflammatory disease. Hepatic steatosis. Cholelithiasis. Atherosclerotic disease. Other findings as described.
[2024-09-02] MEDS: SODIUM CHLORIDE 0.9% 1,000 ML IV ONE (16:45)
[2024-09-02] MEDS: ceFAZolin 2 GM/D5W50ml 50 ML IV ONE (17:54)
[2024-09-02] MEDS: LACTATED RINGER'S 1,000 ML IV ONE (18:05)
[2024-09-02] MEDS ORDERED: DEXTROSE (50%) 50ML SYRG IV PRN (20:00)
[2024-09-02] MEDS: SODIUM CHLORIDE 0.9% 1,000 ML IV SCH (20:30)
[2024-09-02] MEDS: PANTOPRAZOLE 40 MG/10 ML VIAL INJ IV ONE (20:30)
[2024-09-02] MEDS: NOREPINEPHRINE 8 MG/250ML KIT 250 ML IV SCH (21:30)
[2024-09-02] MEDS: InsuLIN REG 1unit/0.01ml Soln (100units/ml) SC SCH (22:00)
[2024-09-02] MEDS: ACCU-CHEK COMFORT CURVE STRIP VI SCH (22:19)
--- NOTE | 2024-09-02 22:51 | DVHHP2 ---
Admitting Diagnosis: acute GI Bleed, Acute Diverticulitis History of Present Illness History Source: Patient Exam Limitations: No limitations HPI Mr. Bernardo Hinojosa is a 49 yo male with a past medical history of NC with x2 cardiac stent placement, and Hypertension who presents with a chief complaint of blood in stool. Patient states, that he has been experiencing loose bloody stools onset, 0430 this morning (09/02/24). Patient reports, that he feels as if he is "hemorrhaging" whenever he uses the restroom and has had x5 episodes since commencement of symptoms. Patient denies weakness, fatigue, or dizziness. No other symptoms or modifying factors present at this time. Patient had x2 episodes of bright red blood stools in ED. Patient reports he takes aspirin and Brillinta last dose taken this morning. Patient admitted for further evaluation and treatment. Home Meds Active Scripts Glipizide (Glipizide) 5 Mg Tab, 1 TAB PO DAILY, #90 TAB 3 Refills Prov:DULCE HOPKINS MD 11/23/23 Senna (Senokot) 8.6 Mg Tab, 2 TAB PO HSPRN PRN, #40 TAB Prov:DULCE HOPKINS MD 11/23/23 Docusate Sodium (Colace) 100 Mg Cap, 1 CAP PO BID PRN, #30 CAP Prov:DULCE HOPKINS MD 11/23/23 Metformin Hydrochloride (Metformin Hcl) 500 Mg Tab, 1 TAB PO BID, #180 TAB 1 Refill Prov:DULCE HOPKINS MD 11/23/23 Hydrocodone-Acetaminophen (Hydrocodone Bitartrate/AC 5-325 mg) 1 Tab Tab, 1 TAB PO Q8HP PRN, #20 % Prov:DULCE HOPKINS MD 11/23/23 Blood Glucose Monitoring Suppl (D-Care Glucometer Kit/Glu W/Device) 1 Kit Kit, KIT XX, #1 Prov:DULCE HOPKINS MD 11/23/23 Insulin Syringe/Needle U-100 (ADVOCATE INSULIN SYRINGE/) 0.5 Mg/31 G Mis, MG XX HS, #90 Prov:DULCE HOPKINS MD 11/23/23 Ticagrelor Base (BRILINTA) 90 Mg Tab, 90 MG PO BID, #180 TAB Prov:DULCE HOPKINS MD 11/23/23 Metoprolol Succinate (Toprol Xl) 50 Mg Tab, 50 MG PO DAILY, #90 TAB Prov:DULCE HOPKINS MD 11/23/23 Lisinopril (Lisinopril) 5 Mg Tab, 5 MG PO DAILY, #90 TAB Prov:DULCE HOPKINS MD 11/23/23 Insulin Glargine (Lantus) 100 Unit/Ml Inj, 15 UNITS SC HS for 90 Days, #120 INJ Prov:DULCE HOPKINS MD 11/23/23 Atorvastatin Calcium (ATORVASTATIN CALCIUM) 20 Mg Tab, 40 MG PO DAILY, #90 TAB Prov:DULCE HOPKINS MD 11/23/23 Aspirin (Aspirin Low Dose) 81 Mg Tab, 81 MG PO DAILY, #90 TAB Prov:DULCE HOPKINS MD 11/23/23 Past Medical History Cardiac: HTN, NC Pulmonary: No pertinent Hx Central Nervous System: No pertinent Hx GI: Hemorrhoids Hemotology/Oncology: No pertinent Hx Hepatobiliary: No pertinent Hx Psychiatric: No pertinent Hx Musculoskeletal: No pertinent Hx Rheumotologic: No pertinent Hx Infectious Disease: No peritnent Hx ENT: No pertinent Hx Renal/: No pertinent Hx Endocrine: NIDDM Dermatology: No pertinent Hx Patient Family History: Patient reports no known family medical history. Smoker: No Hx (Negative) Alocohol: None Drugs: None Lives with: With family Domestic Violence: Neg Review of Systems Constitutional: No symptom reported Ears, Nose, & Throat: No symptom reported Eyes: No symptom reported Pulmonary/Respiratory: No symptom reported Cardiovascular: No symptom reported Gastrointestinal: Abdominal Pain, Other (bloody stools) Genitourinary: No symptom reported Musculoskeletal: No symptom reported Skin: No symptom reported Psychiatric: No symptom reported Endocrine: No symptom reported Hemotologic/Lymphatic: No symptom reported H&P Exam Vital Signs Vital Signs Date Time Temp Pulse Resp B/P (MAP) Pulse Ox O2 Delivery O2 Flow Rate FiO2 09/02/24 20:55 99.3 108 20 92/59 99.3 09/02/24 18:00 98 09/02/24 15:48 Room Air* 0 21 General Appeara: Well developed, Well nourished, Normal Appearance Head Exam: Normal inspection Neck Exam: Normal inspection, Non-tender, Normal alignment Eye Exam: bilateral eye Normal inspection, bilateral eye PERRL, bilateral eye EOMI Ear Exam: bilateral ear Auricle normal Nasal Exam: Normal inspection Mouth: Normal Inspection Pulmonary/Respiratory: Normal inspection, Normal breath sounds, Chest non- tender, Lungs clear Cardiovascular/Chest: Normal inspection, Normal Rhythm, Tachycardia Peripheral Pulses: 2+ dorsalis pedis (R), 2+ dorsalis pedis (L), 2+ Radial (R), 2+ Radial (L) Abdominal Exam: Normal bowel sounds, Soft Abdominal Pain Onset Location: 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: Normal hearing, Normal speech, PERRL Motor/Sensory: Normal sensory function, Normal motor function Neuro/Mental St: Alert, Oriented Appearance: Appropriate appearance, Appropriate insight Eye contact/ Speech: Cooperative, Good eye contact, Normal speech Thoughts/Psych: Normal thought pattern Skin Exam: Normal inspection, Warm/dry, Pallor SEPSIS Sepsis Screen Date sepsis recognized/suspect: Sep 02, 2024 Time Sepsis recognized/suspect: 1547 Recent Procedure: No On Antibiotic Therapy: No Respiratory Rate >20: No Heart Rate >90: Yes Temp<36 C (96.8 F) or >38.3 C: No SBP <90 or MAP <65 mmHG: No New Acute Mental Status Change: No Is the patient on CPAP, BIPAP,: No Physician Orders Blood Culture (09/02/24 16:44) Hemoglobin & Hematocrit (09/03/24 00:00) Hemoglobin & Hematocrit (09/03/24 06:00) Hemoglobin & Hematocrit (09/03/24 12:00) Hemoglobin & Hematocrit (09/03/24 18:00) Hemoglobin & Hematocrit (09/04/24 00:00) Hemoglobin & Hematocrit (09/04/24 06:00) Complete Blood Count (09/03/24 05:00) Complete Blood Count (09/04/24 05:00) Complete Blood Count (09/05/24 05:00) Prothrombin Time W/ Inr (09/02/24 20:00) Basic Metabolic Panel (09/03/24 05:00) Basic Metabolic Panel (09/04/24 05:00) Basic Metabolic Panel (09/05/24 05:00) * Gi Dvh Ammonia Refrigeration Worker (09/02/24 20:00) Lactic Acid W/ Reflex Order (09/02/24 22:00) Lactic Acid W/ Reflex Order (09/03/24 06:00) Admit (09/02/24 20:00) Stat Ekg For Chest Pain (09/02/24 20:00) Notify Md Of Changes From Base (09/02/24 20:00) Supervisor Labor Gang For 24 Hours (09/02/24 20:00) Emergency Dysrhythmia Protocol (09/02/24 20:00) Rhythm Strips Once Every Shift (09/02/24 20:00) Oxygen By Nasal Cannula (09/02/24 20:00) Levofloxacin 500mg (Levaquin 500mg/ 100m (09/03/24 10:00) Sodium Chloride 0.9% (09/02/24 20:00) Pantoprazole (Protonix) (09/03/24 10:00) Npo Except Ice Chips (09/02/24 20:00) Sequential Compression Device (09/02/24 20:00) Npo (Nothing By Mouth) Diet (09/02/24 Dinner) Stool Occult Blood (09/02/24 20:00) Glucose Blood (Accu-Chek Comfort Curve T (09/02/24 22:00) Insulin R (Human) (Insulin R) (09/02/24 22:00) Dextrose 50% Syringe (09/02/24 20:00) Communication Order (09/02/24 20:12) Metronidazole 500mg/100ml (Flagyl 500mg/ (09/03/24 03:00) Transfer Orders (09/02/24 21:20) Norepinephrine 8 Mg/250ml Kit (Levophed) (09/02/24 21:30) Urine Bacterial Culture (09/02/24 21:39) Hemoglobin & Hematocrit (09/02/24 21:39) Vital Signs Date Time Temp Pulse Resp B/P (MAP) Pulse Ox O2 Delivery O2 Flow Rate FiO2 09/02/24 20:55 99.3 108 20 92/59 99.3 09/02/24 20:30 98.8 104 22 95/57 98.8 09/02/24 20:05 104 09/02/24 18:00 96 103/69 (80) 98 09/02/24 17:00 99 14 85/49 (61) 97 09/02/24 16:45 101 19 79/51 (60) 95 09/02/24 16:30 101 23 95/56 (69) 09/02/24 16:15 103 18 91/50 (64) 95 09/02/24 16:02 104 09/02/24 16:00 103 17 91/50 (64) 97 09/02/24 15:48 98.0 104 19 92/48 (63) 96 98.0 09/02/24 15:48 104 19 96 Room Air* 0 21 Laboratory Tests Test 09/02/24 14:29 09/02/24 16:41 Lactic Acid Level 2.3 mmol/L (0.4-2.0) *H 3.3 mmol/L (0.4-2.0) *H White Blood Count 9.8 10^3/uL (4.4-10.8) Medications Medications Dose Ordered Sig/Viktoriya Route Start Time Stop Time Status Last Admin Dose Admin Cefazolin Sodium/ Dextrose 50 ml @ 50 mls/hr ONCE ONCE IV 09/02/24 16:45 09/02/24 17:44 DC 09/02/24 17:54 50 MLS/HR Diagnostic Test (Pha) 1 strip ACHS 09/02/24 22:00 09/02/24 22:19 1 STRIP Lactated Ringer's 1,000 ml @ 1,000 mls/hr Q1H ONCE IV 09/02/24 17:15 09/02/24 18:14 DC 09/02/24 18:05 1,000 MLS/HR Metronidazole 100 ml @ 100 mls/hr ONCE ONCE IV 09/02/24 16:45 09/02/24 17:44 DC 09/02/24 18:26 100 MLS/HR Pantoprazole Sodium 80 mg ONCE ONCE IV 09/02/24 20:00 09/02/24 20:22 DC 09/02/24 20:30 80 MG Sodium Chloride 1,000 ml @ 100 mls/hr Q10H IV 09/02/24 20:00 09/02/24 20:30 100 MLS/HR Sodium Chloride 1,000 ml @ 1,000 mls/hr Q1H ONCE IV 09/02/24 16:45 09/02/24 17:44 DC 09/02/24 16:45 1,000 MLS/HR Labs/Xrays Labs Test 09/02/24 22:18 09/02/24 21:39 09/02/24 16:41 09/02/24 14:29 Range/Units POC Glucose 264 H 70-106 mg/dl Lactic Acid Level 3.3 *H 0.4-2.0 mmol/L White Blood Count 9.8 4.4-10.8 10^3/uL Red Blood Count 5.04 4.5-5.90 10^6/uL Mean Corpuscular Volume 86.2 80.0-100.0 fL Mean Corpuscular Hemoglobin 29.5 28.0-32.0 pg Mean Corpuscular Hemoglobin Concent 34.2 32.0-36.0 g/dL Red Cell Distribution Width 14.5 H 11.8-14.3 % Platelet Count 353 140-450 10^3/uL Mean Platelet Volume 7.4 6.9-10.8 fL Neutrophils (%) (Auto) 79.5 37.0-80.0 % Lymphocytes (%) (Auto) 12.8 10.0-50.0 % Monocytes (%) (Auto) 6.8 0.0-12.0 % Eosinophils (%) (Auto) 0.4 0.0-7.0 % Basophils (%) (Auto) 0.5 0.0-2.0 % Neutrophils # (Auto) 7.8 1.6-8.6 10 ^3/uL Lymphocytes # (Auto) 1.3 0.4-5.4 10 ^3/uL Monocytes # (Auto) 0.7 0-1.3 10 ^3/uL Eosinophils # (Auto) 0 0-0.8 10 ^3/uL Basophils # (Auto) 0.1 0-0.2 10 ^3/uL Nucleated Red Blood Cells 0.1 % Prothrombin Time 11.4 9.3-11.8 sec Prothrombin Time INR 1.08 0.9-1.15 Activated Partial Thromboplast Time 26.9 24.5-34.5 SEC Sodium Level 132 L 136-145 mmol/L Potassium Level 4.4 3.5-5.1 mmol/L Chloride Level 96 L 98-107 mmol/L Carbon Dioxide Level 25 20-31 mmol/L Anion Gap 11 5-15 Blood Urea Nitrogen 18 9-23 mg/dL Creatinine 1.14 0.700-1.30 mg/dL Glomerular Filtration Rate Calc 78 >90 mL/min BUN/Creatinine Ratio 15.8 10.0-20.0 Serum Glucose 361 H 74-106 mg/dL Calcium Level 9.2 8.7-10.4 mg/dL Total Bilirubin 0.8 0.2-1.0 mg/dL Aspartate Amino Transferase (AST) 21 13-40 U/L Alanine Aminotransferase (ALT) 24 7-40 U/L Alkaline Phosphatase 74 46-116 U/L Total Protein 6.1 5.7-8.2 g/dL Albumin 3.9 3.2-4.8 g/dL Assessment/Plan Problem List: (1) GI bleed (2) Acute diverticulitis Plan This is a 49 yo male with known history of DM, HTN, NC who presents to the hospital with bloody stools onset this morning. Patient found to have 1. Acute GI Bleed 2. Acute Diverticulitis 3. Hypovolemia 4. DM type 2 5. Hypertension 6. NC Plan Admit ICU Gastroenterology consultation, serial H&H levels, transfuse PRBC's as needed Broad Spectrum IV antibiotics IV fluids GI ppx Protonix IV DVT ppx SCD's Keep NPO except ice chips Monitor daily CBC, BMP Vasopressors as needed for optimal blood pressure support Glucose monitoring AC & HS coverage with mild insulin sliding scale Hold all anticoagulants Discussed all above with patient who verbalizes agreement and understanding of care plan. All questions were answered. Discussed assessment and care plan with supervising MD. Plan discussed with: Patient, Other Code Visit Code Visit Total Time (mins): 45 Additional Comments Additional Comments Additional Comments 49-year-old male with a known history of coronary artery disease status post PCI with two stents, diabetes mellitus type 2, hypertension who initially presented to the hospital with a bloody stool for last two days with a five episodes of hemorrhagic episodes found to have 1. Acute GI bleed suspect secondary to ischemic colitis of the descending colon and sigmoid colon 2. Acute diverticulitis of the sigmoid colon 3. Hypovolemia 4. Acute anemia secondary to acute GI bleed 5. Diabetes mellitus type 2 6. Hypertension 7. CAD status post PCI with two stents -continue NPO, ice chips, H&H q.6 hours, IV antibiotics, GI consultation, -cardiology consultation as patient is currently on Brilinta. KRISHNA HARDING Sep 02, 2024 22:51 DULCE HOPKINS MD Sep 03, 2024 17:19
--- NOTE | 2024-09-02 23:02 | DVHINCON2 ---
Date of service: Sep 02, 2024 Referring Physician Fide López Reason for Consultation LGI bleed History of Present Illness 49 y/o M, with PMHx of IA and HTN presents to the ED for CC of blood in stool. Patient states, that he has been experiencing loose bloody stools onset, 0430 this morning (09/02/24). Patient reports, that he feels as if he is "hemorrhaging" whenever he uses the restroom and has had x5 episodes since commencement of symptoms. Patient denies weakness, fatigue, or dizziness. No other symptoms or modifying factors present at this time. Patient also had 2 bloody bowel movement in the ER. Patient was on aspirin and Brilinta prior to admission last dose was this morning. Past Medical History DM, HTN, IA Past Surgical History Negative Family History: Patient reports no known family medical history. Allergies: Coded Allergies: NO KNOWN ALLERGIES (Unverified , 10/06/23) Home Meds Active Scripts Glipizide (Glipizide) 5 Mg Tab, 1 TAB PO DAILY, #90 TAB 3 Refills Prov:DULCE HOPKINS MD 11/23/23 Senna (Senokot) 8.6 Mg Tab, 2 TAB PO HSPRN PRN, #40 TAB Prov:DULCE HOPKINS MD 11/23/23 Docusate Sodium (Colace) 100 Mg Cap, 1 CAP PO BID PRN, #30 CAP Prov:DULCE HOPKINS MD 11/23/23 Metformin Hydrochloride (Metformin Hcl) 500 Mg Tab, 1 TAB PO BID, #180 TAB 1 Refill Prov:DULCE HOPKINS MD 11/23/23 Hydrocodone-Acetaminophen (Hydrocodone Bitartrate/AC 5-325 mg) 1 Tab Tab, 1 TAB PO Q8HP PRN, #20 % Prov:DULCE HOPKINS MD 11/23/23 Blood Glucose Monitoring Suppl (D-Care Glucometer Kit/Glu W/Device) 1 Kit Kit, KIT XX, #1 Prov:DULCE HOPKINS MD 11/23/23 Insulin Syringe/Needle U-100 (ADVOCATE INSULIN SYRINGE/) 0.5 Mg/31 G Mis, MG XX HS, #90 Prov:DULCE HOPKINS MD 11/23/23 Ticagrelor Base (BRILINTA) 90 Mg Tab, 90 MG PO BID, #180 TAB Prov:DULCE HOPKINS MD 11/23/23 Metoprolol Succinate (Toprol Xl) 50 Mg Tab, 50 MG PO DAILY, #90 TAB Prov:DULCE HOPKINS MD 11/23/23 Lisinopril (Lisinopril) 5 Mg Tab, 5 MG PO DAILY, #90 TAB Prov:DULCE HOPKINS MD 11/23/23 Insulin Glargine (Lantus) 100 Unit/Ml Inj, 15 UNITS SC HS for 90 Days, #120 INJ Prov:DULCE HOPKINS MD 11/23/23 Atorvastatin Calcium (ATORVASTATIN CALCIUM) 20 Mg Tab, 40 MG PO DAILY, #90 TAB Prov:DULCE HOPKINS MD 11/23/23 Aspirin (Aspirin Low Dose) 81 Mg Tab, 81 MG PO DAILY, #90 TAB Prov:DULCE HOPKINS MD 11/23/23 Current Medications Current Medications Medications (Trade) Dose Ordered Sig/Viktoriya Route PRN Reason Start Time Stop Time Status Last Admin Metronidazole 100 ml @ 100 mls/hr Q8H IV 09/03/24 03:00 Levofloxacin/ Dextrose 100 ml @ 100 mls/hr DAILY IV 09/03/24 10:00 Sodium Chloride 1,000 ml @ 100 mls/hr Q10H IV 09/02/24 20:00 09/02/24 20:30 Pantoprazole Sodium (Protonix) 40 mg BID IV 09/03/24 10:00 Diagnostic Test (Pha) (Accu-Chek Comfort Curve T) 1 strip ACHS 09/02/24 22:00 09/02/24 22:19 Insulin Human Regular (InsuLIN R) ACHS SC 09/02/24 22:00 Dextrose 50 ml UD PRN IV Blood Sugar LESS THAN 60 09/02/24 20:00 Norepinephrine Bitartrate 250 ml @ 3.75 mls/hr Q24H IV 09/02/24 21:30 Vital Signs Vital Signs Date Time Temp Pulse Resp B/P (MAP) Pulse Ox O2 Delivery O2 Flow Rate FiO2 09/02/24 22:50 98.4 108 16 83/54 98.4 09/02/24 18:00 98 09/02/24 15:48 Room Air* 0 21 Physical Exam Hemodynamically stable Mild abdominal tenderness Full physical examination deferred Labs/Diagnostic Data Labs Test 09/02/24 22:18 09/02/24 22:04 09/02/24 21:39 09/02/24 16:41 Range/Units POC Glucose 264 H 70-106 mg/dl Lactic Acid Level 3.3 *H 0.4-2.0 mmol/L Test 09/02/24 14:29 Range/Units White Blood Count 9.8 4.4-10.8 10^3/uL Red Blood Count 5.04 4.5-5.90 10^6/uL Mean Corpuscular Volume 86.2 80.0-100.0 fL Mean Corpuscular Hemoglobin 29.5 28.0-32.0 pg Mean Corpuscular Hemoglobin Concent 34.2 32.0-36.0 g/dL Red Cell Distribution Width 14.5 H 11.8-14.3 % Platelet Count 353 140-450 10^3/uL Mean Platelet Volume 7.4 6.9-10.8 fL Neutrophils (%) (Auto) 79.5 37.0-80.0 % Lymphocytes (%) (Auto) 12.8 10.0-50.0 % Monocytes (%) (Auto) 6.8 0.0-12.0 % Eosinophils (%) (Auto) 0.4 0.0-7.0 % Basophils (%) (Auto) 0.5 0.0-2.0 % Neutrophils # (Auto) 7.8 1.6-8.6 10 ^3/uL Lymphocytes # (Auto) 1.3 0.4-5.4 10 ^3/uL Monocytes # (Auto) 0.7 0-1.3 10 ^3/uL Eosinophils # (Auto) 0 0-0.8 10 ^3/uL Basophils # (Auto) 0.1 0-0.2 10 ^3/uL Nucleated Red Blood Cells 0.1 % Prothrombin Time 11.4 9.3-11.8 sec Prothrombin Time INR 1.08 0.9-1.15 Activated Partial Thromboplast Time 26.9 24.5-34.5 SEC Sodium Level 132 L 136-145 mmol/L Potassium Level 4.4 3.5-5.1 mmol/L Chloride Level 96 L 98-107 mmol/L Carbon Dioxide Level 25 20-31 mmol/L Anion Gap 11 5-15 Blood Urea Nitrogen 18 9-23 mg/dL Creatinine 1.14 0.700-1.30 mg/dL Glomerular Filtration Rate Calc 78 >90 mL/min BUN/Creatinine Ratio 15.8 10.0-20.0 Serum Glucose 361 H 74-106 mg/dL Calcium Level 9.2 8.7-10.4 mg/dL Total Bilirubin 0.8 0.2-1.0 mg/dL Aspartate Amino Transferase (AST) 21 13-40 U/L Alanine Aminotransferase (ALT) 24 7-40 U/L Alkaline Phosphatase 74 46-116 U/L Total Protein 6.1 5.7-8.2 g/dL Albumin 3.9 3.2-4.8 g/dL CT SCAN ABD PELVIS IMPRESSION: Diverticulitis of the sigmoid colon. Recommend colonoscopy once acute symptoms resolve to exclude underlying colonic lesion. Bladder wall thickening likely secondary to the adjacent diverticulitis. Recommend continued follow-up to exclude colovesicular fistula. Mild wall thickening of the descending colon which could represent synchronous s egment of diverticulitis, colitis, inflammatory disease. Hepatic steatosis. Cholelithiasis. Atherosclerotic disease. Problems(with codes): (1) Colitis (2) Abnormal finding on GI tract imaging (3) GI bleed (4) Acute diverticulitis (5) Bright red blood per rectum (6) Lactic acid acidosis (7) Hypovolemia (8) Weakness Plan/Recommendation Assessment plan I suspect the patient may have segmental ischemic colitis of the descending and sigmoid colon due to underlying atherosclerosis He also has diverticular disease with suspected diverticulitis and possible cystitis Keep this patient NPO except for ice chips IV fluid hydration Broad-spectrum antibiotics Stool for WBC bacterial culture and C diff Pain control; hold Brilinta and aspirin for now Monitor H&H every 6 hours If the hemoglobin drops below seven transfuse 1 unit PRBC Protonix 40 mg once a day Elective colonoscopy once patient's acute colitis and illness have subsided Plan discussed with: Other (ER Nurse) KAI LEONARDO MD Sep 02, 2024 23:01
[2024-09-03] VITALS (7 sets, daily range): BP systolic 92–133; BP diastolic 42–82; PULSE 90–98; RESP 17–22; TEMP 97.3–98.3; O2SAT 95–99
[2024-09-03 05:45] LABS: Hematocrit 28.9 % (41.0-53.0); Hemoglobin 10.0 g/dL (13.5-17.5); Mean Corpuscular Hemoglobin 30.0 pg (28.0-32.0); Mean Corpuscular Volume 86.4 fL (80.0-100.0); Nucleated Red Blood Cells % 0.0 %
[2024-09-03 05:59] LABS: Chloride 104 mmol/L (98-107); Potassium 3.8 mmol/L (3.5-5.1); Sodium 137 mmol/L (136-145)
[2024-09-03 06:00] LABS: Anion Gap 8 (5-15); Carbon Dioxide 25 mmol/L (20-31)
[2024-09-03 06:01] LABS: INR 1.13 (0.9-1.15); Prothrombin Time 11.8 sec (9.3-11.8)
[2024-09-03 06:05] LABS: BUN/Creatinine Ratio 17.1 (10.0-20.0); Blood Urea Nitrogen 12 mg/dL (9-23)
[2024-09-03 06:12] LABS: Calcium 7.2 mg/dL (8.7-10.4); Glucose 185 mg/dL (74-106)
[2024-09-03] MEDS: PANTOPRAZOLE 40 MG/10 ML VIAL INJ IV SCH (09:58)
[2024-09-03] MEDS: ATORVASTATIN 20 MG TAB PO SCH (09:59)
[2024-09-03 12:39] LABS: Hematocrit 30.2 % (41.0-53.0); Hemoglobin 10.2 g/dL (13.5-17.5)
--- NOTE | 2024-09-03 14:10 | DVHPN2 ---
Subjective Patient denies abdominal pain Patient complains of diarrhea had about nine episodes of loose stool yesterday which was mostly bloody. Last bowel movement at 1:00 a.m. none since that time No rectal pain. No history of hemorrhoids No colonoscopy in past Patient takes Brilinta since November 2023 Changes from previous H/P or p: No Changes Objective Vitals Vital Signs Date Time Temp Pulse Resp B/P (MAP) Pulse Ox O2 Delivery O2 Flow Rate FiO2 09/03/24 12:01 84 17 09/03/24 08:08 99 Nasal Cannula* 2 28 09/03/24 03:00 98.3 98.3 Intake/Output Intake and Output 09/03/24 07:00 Intake Total 4483.75 ml Output Total 1400 ml Balance 3083.75 ml Intake Oral 0 ml IV Total 3283.75 ml Tube Feeding 0 ml Blood Product 1200 ml Other 0 ml Output Urine Total 1400 ml # Bowel Movements 3 General Appearance: Alert, Oriented X3, Cooperative, No acute distress, mild distress, moderate distress, severe distress, Other Lungs: Clear to auscultation, Normal air movement, Other Cardiovascular: Regular rate, Normal S1, Normal S2, No murmurs, Gallops, Rubs, Other Abdomen: Normal bowel sounds, Soft, No tenderness, No hepatospenomegaly, No masses, Other Medications Current Medications Medications Dose Ordered Sig/Viktoriya Route Start Time Stop Time Status Last Admin Dose Admin Metronidazole 100 ml @ 100 mls/hr Q8H IV 09/03/24 03:00 09/03/24 11:06 100 MLS/HR Levofloxacin/ Dextrose 100 ml @ 100 mls/hr DAILY IV 09/03/24 10:00 09/03/24 09:58 100 MLS/HR Sodium Chloride 1,000 ml @ 100 mls/hr Q10H IV 09/02/24 20:00 09/03/24 05:46 100 MLS/HR Pantoprazole Sodium 40 mg BID IV 09/03/24 10:00 09/03/24 09:58 40 MG Diagnostic Test (Pha) 1 strip ACHS 09/02/24 22:00 09/03/24 11:14 1 STRIP Insulin Human Regular ACHS SC 09/02/24 22:00 Dextrose 50 ml UD PRN IV 09/02/24 20:00 Norepinephrine Bitartrate 250 ml @ 3.75 mls/hr Q24H IV 09/02/24 21:30 09/02/24 21:30 3.75 MLS/HR Atorvastatin Calcium 40 mg DAILY PO 09/03/24 10:00 09/03/24 09:59 40 MG Laboratory Results Laboratory Tests 09/03/24 05:35 09/03/24 12:20 Chemistry Test 09/02/24 14:29 09/03/24 05:35 Albumin 3.9 g/dL (3.2-4.8) Calcium Level 9.2 mg/dL (8.7-10.4) 7.2 mg/dL (8.7-10.4) L Total Protein 6.1 g/dL (5.7-8.2) Coagulation Test 09/02/24 14:29 09/03/24 05:35 Prothrombin Time 11.4 sec (9.3-11.8) 11.8 sec (9.3-11.8) Prothrombin Time INR 1.08 (0.9-1.15) 1.13 (0.9-1.15) Activated Partial Thromboplast Time 26.9 SEC (24.5-34.5) LFT Test 09/02/24 14:29 Alanine Aminotransferase (ALT) 24 U/L (7-40) Alkaline Phosphatase 74 U/L (46-116) Aspartate Amino Transferase (AST) 21 U/L (13-40) Total Bilirubin 0.8 mg/dL (0.2-1.0) Labs and/or images reviewed: Labs reviewed by me, Image(s) reviewed by me Assessment/Plan Assessment/Plan Colitis Abnormal finding on GI tract imaging GI bleed Acute diverticulitis Bright red blood per rectum Lactic acidosis Plan Discussed with Dr. Allen Clear liquid diet Stool for WBC, culture and C diff IV antibiotics Monitor labs Possible plan for outpatient colonoscopy once inflammation subsides Hold blood thinners GI on standby if symptoms persist Plan discussed with: Patient Date of Service: Sep 03, 2024 Billing Provider: EH ANDRE Common Visit Codes: [id number] INP/OBS CARE(HIGH) EH ANDRE Sep 03, 2024 14:10
--- NOTE | 2024-09-03 17:23 | DVHPN2 ---
Subjective Overnight events noted patient did receive 2 units of packed RBC. Changes from previous H/P or p: No Changes Objective Vitals Vital Signs Date Time Temp Pulse Resp B/P (MAP) Pulse Ox O2 Delivery O2 Flow Rate FiO2 09/03/24 14:00 88 14 119/64 (82) 09/03/24 08:08 99 Nasal Cannula* 2 28 09/03/24 03:00 98.3 98.3 Intake/Output Intake and Output 09/03/24 07:00 Intake Total 4483.75 ml Output Total 1400 ml Balance 3083.75 ml Intake Oral 0 ml IV Total 3283.75 ml Tube Feeding 0 ml Blood Product 1200 ml Other 0 ml Output Urine Total 1400 ml # Bowel Movements 3 Exam HEENT pupils are reactive Neck is supple CV is S1-S2 regular rate and rhythm Respiratory are clear GI positive bowel sounds soft nondistended nontender no guarding no rigidity 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 General Appearance: Alert, Oriented X3, Cooperative, No acute distress, mild distress, moderate distress, severe distress, Other Lungs: Clear to auscultation, Normal air movement, Other Cardiovascular: Regular rate, Normal S1, Normal S2, No murmurs, Gallops, Rubs, Other Abdomen: Normal bowel sounds, Soft, No tenderness, No hepatospenomegaly, No masses, Other Medications Current Medications Medications Dose Ordered Sig/Viktoriya Route Start Time Stop Time Status Last Admin Dose Admin Metronidazole 100 ml @ 100 mls/hr Q8H IV 09/03/24 03:00 09/03/24 11:06 100 MLS/HR Levofloxacin/ Dextrose 100 ml @ 100 mls/hr DAILY IV 09/03/24 10:00 09/03/24 09:58 100 MLS/HR Sodium Chloride 1,000 ml @ 100 mls/hr Q10H IV 09/02/24 20:00 09/03/24 05:46 100 MLS/HR Pantoprazole Sodium 40 mg BID IV 09/03/24 10:00 09/03/24 09:58 40 MG Diagnostic Test (Pha) 1 strip ACHS 09/02/24 22:00 09/03/24 11:14 1 STRIP Insulin Human Regular ACHS SC 09/02/24 22:00 Dextrose 50 ml UD PRN IV 09/02/24 20:00 Norepinephrine Bitartrate 250 ml @ 3.75 mls/hr Q24H IV 09/02/24 21:30 09/02/24 21:30 3.75 MLS/HR Atorvastatin Calcium 40 mg DAILY PO 09/03/24 10:00 09/03/24 09:59 40 MG Laboratory Results Laboratory Tests 09/03/24 05:35 09/03/24 12:20 Chemistry Test 09/03/24 05:35 Calcium Level 7.2 mg/dL (8.7-10.4) L Coagulation Test 09/03/24 05:35 Prothrombin Time 11.8 sec (9.3-11.8) Prothrombin Time INR 1.13 (0.9-1.15) Microbiology Microbiology Date/Time Source Procedure Growth Status 09/02/24 22:04 Stool Stool Culture - Preliminary Resulted 09/02/24 22:04 Stool Shiga Toxin I & II - Final Resulted 09/02/24 22:04 Stool Clostridium difficile Toxin Assay - Final Resulted 09/02/24 17:05 Blood Blood Culture - Preliminary NO GROWTH AFTER 24 HOURS OF INCUBATION. Resulted Assessment/Plan Assessment/Plan 49-year-old male with a known history of coronary artery disease status post PCI with two stents, diabetes mellitus type 2, hypertension who initially presented to the hospital with a bloody stool for last two days with a five episodes of hemorrhagic episodes found to have 1. Acute GI bleed suspect secondary to ischemic colitis of the descending colon and sigmoid colon 2. Acute diverticulitis of the sigmoid colon 3. Hypovolemic/hemorrhagic shock, was on Levophed currently off 4. Acute anemia secondary to acute GI bleed 5. Diabetes mellitus type 2 6. Hypertension 7. CAD status post PCI with two stents -continue NPO, ice chips, H&H q.6 hours, IV antibiotics, GI consultation, -cardiology consultation as patient is currently on Brilinta. Plan discussed with: Patient My Orders Orders - DULCE HOPKINS MD Procedure Category Date Status Time Transfer Orders XFER 09/03/24 Transmitted 14:20 Date of Service: Sep 03, 2024 Billing Provider: DULCE HOPKINS MD Common Visit Codes: NOT BILLABLE DULCE HOPKINS MD Sep 03, 2024 17:23
[2024-09-03 18:15] LABS: Hematocrit 29.3 % (41.0-53.0); Hemoglobin 10.0 g/dL (13.5-17.5)
[2024-09-04] VITALS (8 sets, daily range): BP systolic 114–143; BP diastolic 50–92; PULSE 86–95; RESP 16–18; TEMP 97.9–98.4; O2SAT 93–97
[2024-09-04 01:02] LABS: Hematocrit 26.6 % (41.0-53.0); Hemoglobin 9.2 g/dL (13.5-17.5)
[2024-09-04 06:47] LABS: Hematocrit 26.6 % (41.0-53.0); Hemoglobin 9.2 g/dL (13.5-17.5); Mean Corpuscular Hemoglobin 30.4 pg (28.0-32.0); Mean Corpuscular Volume 87.7 fL (80.0-100.0); Nucleated Red Blood Cells % 0.0 %
[2024-09-04 06:51] LABS: Chloride 107 mmol/L (98-107); Sodium 142 mmol/L (136-145)
[2024-09-04 06:52] LABS: Anion Gap 9 (5-15); Carbon Dioxide 26 mmol/L (20-31)
[2024-09-04 07:00] LABS: BUN/Creatinine Ratio 8.1 (10.0-20.0); Blood Urea Nitrogen < 5 mg/dL (9-23); Calcium 7.8 mg/dL (8.7-10.4); Glucose 115 mg/dL (74-106); Potassium 3.3 mmol/L (3.5-5.1)
--- NOTE | 2024-09-04 17:13 | DVHPN2 ---
Subjective Overnight events noted. Patient denies any episodes of bleeding per rectum. 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 General Appearance: Alert, Oriented X3, Cooperative, No acute distress, mild distress, moderate distress, severe distress, Other Lungs: Clear to auscultation, Normal air movement, Other Cardiovascular: Regular rate, Normal S1, Normal S2, No murmurs, Gallops, Rubs, Other Abdomen: Normal bowel sounds, Soft, No tenderness, No hepatospenomegaly, No masses, Other Medications Current Medications Medications Dose Ordered Sig/Viktoriya Route Start Time Stop Time Status Last Admin Dose Admin Metronidazole 100 ml @ 100 mls/hr Q8H IV 09/03/24 03:00 09/04/24 11:08 100 MLS/HR Levofloxacin/ Dextrose 100 ml @ 100 mls/hr DAILY IV 09/03/24 10:00 09/04/24 09:36 100 MLS/HR Sodium Chloride 1,000 ml @ 100 mls/hr Q10H IV 09/02/24 20:00 09/04/24 05:06 100 MLS/HR Pantoprazole Sodium 40 mg BID IV 09/03/24 10:00 09/04/24 09:36 40 MG Diagnostic Test (Pha) 1 strip ACHS 09/02/24 22:00 09/04/24 11:09 1 STRIP Insulin Human Regular ACHS SC 09/02/24 22:00 09/04/24 11:09 3 UNITS Dextrose 50 ml UD PRN IV 09/02/24 20:00 Norepinephrine Bitartrate 250 ml @ 3.75 mls/hr Q24H IV 09/02/24 21:30 09/02/24 21:30 3.75 MLS/HR Atorvastatin Calcium 40 mg DAILY PO 09/03/24 10:00 09/04/24 09:35 40 MG Laboratory Results Laboratory Tests 09/04/24 05:28 Chemistry Test 09/04/24 05:28 Calcium Level 7.8 mg/dL (8.7-10.4) L Microbiology Microbiology Date/Time Source Procedure Growth Status 09/03/24 04:36 Voided Urine Urine Culture - Preliminary Resulted 09/02/24 22:04 Stool Stool Culture - Preliminary Resulted 09/02/24 22:04 Stool Shiga Toxin I & II - Final Resulted 09/02/24 22:04 Stool Clostridium difficile Toxin Assay - Final Resulted 09/02/24 17:05 Blood Blood Culture - Preliminary NO GROWTH AFTER 24 HOURS OF INCUBATION. Resulted Assessment/Plan Assessment/Plan 49-year-old male with a known history of coronary artery disease status post PCI with two stents, diabetes mellitus type 2, hypertension who initially presented to the hospital with a bloody stool for last two days with a five episodes of hemorrhagic episodes found to have 1. Acute GI bleed suspect secondary to ischemic colitis of the descending colon and sigmoid colon 2. Acute diverticulitis of the sigmoid colon 3. Hypovolemic/hemorrhagic shock, was on Levophed currently off 4. Acute anemia secondary to acute GI bleed 5. Diabetes mellitus type 2 6. Hypertension 7. CAD status post PCI with two stents -clear liquid diet and advanced as tolerated IV antibiotics, GI consultation appreciated, -cardiology consultation as patient is currently on Brilinta. Plan discussed with: Patient Date of Service: Sep 04, 2024 Billing Provider: DULCE HOPKINS MD Common Visit Codes: NOT BILLABLE DULCE HOPKINS MD Sep 04, 2024 17:12
[2024-09-04] MEDS: DOCUSATE SOD 100 MG CAP PO PRN (18:27)
[2024-09-04] MEDS: TAMSULOSIN HYDROCHLORIDE 0.4 MG CAP PO SCH (18:27)
[2024-09-04] MEDS: FINASTERIDE 5 MG TAB PO SCH (18:27)
--- NOTE | 2024-09-04 18:43 | DVHPN2 ---
Progress Note - Dictate Date Seen: Sep 04, 2024 Medical Necessity Reason Pt with a Central, PICC or Fol: No Subjective No new complaints, patient resting comfortably His diarrhea episodes are resolved and he has not had a bowel movement today , nurse requesting Colace Abdominal pain is improved vital signs Vital Sign Date Time Temp Pulse Resp B/P (MAP) Pulse Ox O2 Delivery O2 Flow Rate FiO2 09/04/24 17:41 88 16 140/92 (108) 96 09/04/24 13:10 98.0 98.0 09/04/24 08:00 Room Air* 0 21 Total Intake and Output 09/03/24 09/03/24 09/04/24 15:00 23:00 07:00 Intake Total 100 ml 1740 ml Balance 100 ml 1740 ml medications Current Medications Medications Dose Ordered Sig/Viktoriya Route Start Time Stop Time Status Last Admin Dose Admin Metronidazole 100 ml @ 100 mls/hr Q8H IV 09/03/24 03:00 09/04/24 18:28 100 MLS/HR Levofloxacin/ Dextrose 100 ml @ 100 mls/hr DAILY IV 09/03/24 10:00 09/04/24 09:36 100 MLS/HR Sodium Chloride 1,000 ml @ 100 mls/hr Q10H IV 09/02/24 20:00 09/04/24 05:06 100 MLS/HR Pantoprazole Sodium 40 mg BID IV 09/03/24 10:00 09/04/24 09:36 40 MG Diagnostic Test (Pha) 1 strip ACHS 09/02/24 22:00 09/04/24 17:18 1 STRIP Insulin Human Regular ACHS SC 09/02/24 22:00 09/04/24 17:23 3 UNITS Dextrose 50 ml UD PRN IV 09/02/24 20:00 Norepinephrine Bitartrate 250 ml @ 3.75 mls/hr Q24H IV 09/02/24 21:30 09/02/24 21:30 3.75 MLS/HR Atorvastatin Calcium 40 mg DAILY PO 09/03/24 10:00 09/04/24 09:35 40 MG Finasteride 5 mg DAILY PO 09/04/24 18:00 09/04/24 18:27 5 MG Tamsulosin HCl 0.4 mg QPM PO 09/04/24 18:00 09/04/24 18:27 0.4 MG Docusate Sodium 100 mg BIDPRN PRN PO 09/04/24 17:30 09/04/24 18:27 100 MG objective General Appearance: Alert, Oriented X3, Cooperative, No acute distress, Lungs: Clear to auscultation, Normal air movement, Other Cardiovascular: Regular rate, Normal S1, Normal S2, No murmurs, Gallops, Rubs, Other Abdomen: Normal bowel sounds, Soft, No tenderness, No hepatospenomegaly, No masses, Extremities show no clubbing cyanosis or edema laboratory and microbiology Laboratory Tests 09/04/24 05:28 Test 09/04/24 05:28 Range/Units Serum Glucose 115 H 74-106 mg/dL Problems(with codes): (1) Lactic acid acidosis (2) Weakness (3) Hypovolemia (4) Abnormal finding on GI tract imaging (5) Colitis (6) GI bleed (7) Acute diverticulitis (8) Bright red blood per rectum Prognosis Plan Advance diet as tolerated Continue supportive care Elective colonoscopy once cardiac cleared Allisonilinta is on hold Colace 100 mg p.o. daily Dietary Evaluation Review Comments: when medically feasible: 1. Advanced to CCHO-60 Cardiac diet 2. Try ground-up seeds or nuts if desired. 3. Monitor Wt and blood sugar levels Expected Outcomes/Goals: Controlled DM, gradual wt loss Plan discussed with: Patient, Other (Nurse) CC Plasma Assessment Blood Product Administration S: [id number] KAI LEONARDO MD Sep 04, 2024 18:43
[2024-09-05] VITALS (8 sets, daily range): BP systolic 121–139; BP diastolic 77–92; PULSE 77–99; RESP 15–18; TEMP 97.9–98.5; O2SAT 94–97
[2024-09-05 06:25] LABS: Hematocrit 25.8 % (41.0-53.0); Hemoglobin 8.9 g/dL (13.5-17.5); Mean Corpuscular Hemoglobin 29.8 pg (28.0-32.0); Mean Corpuscular Volume 86.6 fL (80.0-100.0); Nucleated Red Blood Cells % 0.0 %
[2024-09-05 06:35] LABS: Chloride 104 mmol/L (98-107); Sodium 140 mmol/L (136-145)
[2024-09-05 06:36] LABS: Anion Gap 8 (5-15); Carbon Dioxide 28 mmol/L (20-31)
[2024-09-05 06:38] LABS: Calcium 8.3 mg/dL (8.7-10.4); Potassium 3.3 mmol/L (3.5-5.1)
[2024-09-05 06:44] LABS: BUN/Creatinine Ratio 6.8 (10.0-20.0); Blood Urea Nitrogen < 5 mg/dL (9-23); Glucose 210 mg/dL (74-106)
--- NOTE | 2024-09-05 19:46 | DVHPN2 ---
Progress Note - Dictate Date Seen: Sep 05, 2024 Medical Necessity Reason Pt with a Central, PICC or Fol: No Subjective No new complaints, patient resting comfortably His diarrhea episodes are resolved and he has not had a bowel movement today , Abdominal pain is improved vital signs Vital Sign Date Time Temp Pulse Resp B/P (MAP) Pulse Ox O2 Delivery O2 Flow Rate FiO2 09/05/24 17:00 97.9 96 18 139/92 (108) 96 97.9 09/05/24 08:02 Room Air* 0 21 Total Intake and Output 09/04/24 09/04/24 09/05/24 15:00 23:00 07:00 Intake Total 200 ml 1200 ml 640 ml Balance 200 ml 1200 ml 640 ml medications Current Medications Medications Dose Ordered Sig/Viktoriya Route Start Time Stop Time Status Last Admin Dose Admin Metronidazole 100 ml @ 100 mls/hr Q8H IV 09/03/24 03:00 09/05/24 11:06 100 MLS/HR Levofloxacin/ Dextrose 100 ml @ 100 mls/hr DAILY IV 09/03/24 10:00 09/05/24 09:41 100 MLS/HR Sodium Chloride 1,000 ml @ 100 mls/hr Q10H IV 09/02/24 20:00 09/05/24 17:31 100 MLS/HR Pantoprazole Sodium 40 mg BID IV 09/03/24 10:00 09/05/24 09:40 40 MG Diagnostic Test (Pha) 1 strip ACHS 09/02/24 22:00 09/05/24 17:28 1 STRIP Insulin Human Regular ACHS SC 09/02/24 22:00 09/05/24 17:29 4 UNITS Dextrose 50 ml UD PRN IV 09/02/24 20:00 Norepinephrine Bitartrate 250 ml @ 3.75 mls/hr Q24H IV 09/02/24 21:30 09/02/24 21:30 3.75 MLS/HR Atorvastatin Calcium 40 mg DAILY PO 09/03/24 10:00 09/05/24 09:41 40 MG Finasteride 5 mg DAILY PO 09/04/24 18:00 09/05/24 09:40 5 MG Tamsulosin HCl 0.4 mg QPM PO 09/04/24 18:00 09/05/24 17:33 0.4 MG Docusate Sodium 100 mg BIDPRN PRN PO 09/04/24 17:30 09/04/24 18:27 100 MG objective General Appearance: Alert, Oriented X3, Cooperative, No acute distress, Lungs: Clear to auscultation, Normal air movement, Other Cardiovascular: Regular rate, Normal S1, Normal S2, No murmurs, Gallops, Rubs, Other Abdomen: Normal bowel sounds, Soft, No tenderness, No hepatospenomegaly, No masses, Extremities show no clubbing cyanosis or edema laboratory and microbiology Laboratory Tests 09/05/24 04:47 Test 09/05/24 04:47 Range/Units Serum Glucose 210 H 74-106 mg/dL Problems(with codes): (1) Lactic acid acidosis (2) Weakness (3) Abnormal finding on GI tract imaging (4) Colitis (5) GI bleed (6) Bright red blood per rectum Prognosis Plan Advance diet as tolerated Continue supportive care Elective colonoscopy once cardiac cleared as an outpatient, patient was given my contact information Brilinta is on hold; okay to resume anticoagulation if bleeding has stopped Colace 100 mg p.o. daily Dietary Evaluation Review Comments: when medically feasible: 1. Advanced to [facility] Cardiac diet 2. Try ground-up seeds or nuts if desired. 3. Monitor Wt and blood sugar levels Expected Outcomes/Goals: Controlled DM, gradual wt loss Plan discussed with: Patient CC Plasma Assessment Blood Product Administration S: [id number] KAI LEONARDO MD Sep 05, 2024 19:46
[2024-09-06] VITALS (9 sets, daily range): BP systolic 113–160; BP diastolic 76–96; PULSE 72–95; RESP 16–20; TEMP 97.5–98.5; O2SAT 95–98
[2024-09-06 06:22] LABS: Hematocrit 28.3 % (41.0-53.0); Hemoglobin 9.7 g/dL (13.5-17.5); Mean Corpuscular Hemoglobin 29.9 pg (28.0-32.0); Mean Corpuscular Volume 87.7 fL (80.0-100.0); Nucleated Red Blood Cells % 0.1 %
[2024-09-06 06:23] LABS: Anion Gap 9 (5-15); Carbon Dioxide 27 mmol/L (20-31); Chloride 104 mmol/L (98-107); Sodium 140 mmol/L (136-145)
[2024-09-06 06:26] LABS: Calcium 8.5 mg/dL (8.7-10.4); Potassium 3.2 mmol/L (3.5-5.1)
[2024-09-06 06:29] LABS: BUN/Creatinine Ratio 6.6 (10.0-20.0); Blood Urea Nitrogen < 5 mg/dL (9-23); Glucose 205 mg/dL (74-106)
[2024-09-06 06:30] LABS: Magnesium 1.4 mg/dL (1.6-2.6)
[2024-09-06] MEDS: POTASSIUM CHL 20 Meq TABLET PO ONE (15:15)
[2024-09-06] MEDS: LACTULOSE 20Gm/30ML SOLN PO PRN (15:15)
--- NOTE | 2024-09-06 16:21 | DVHPN2 ---
Progress Note - Dictate Date Seen: Sep 06, 2024 Medical Necessity Reason Pt with a Central, PICC or Fol: No Subjective No new complaints, patient resting comfortably His diarrhea episodes are resolved and he has not had a bowel movement today , Abdominal pain is improved vital signs Vital Sign Date Time Temp Pulse Resp B/P (MAP) Pulse Ox O2 Delivery O2 Flow Rate FiO2 09/06/24 12:51 97.9 95 20 160/89 (112) 98 97.9 09/06/24 08:08 Room Air* 0 21 Total Intake and Output 09/05/24 09/05/24 09/06/24 15:00 23:00 07:00 Intake Total 300 ml 750 ml 1300 ml Balance 300 ml 750 ml 1300 ml medications Current Medications Medications Dose Ordered Sig/Viktoriya Route Start Time Stop Time Status Last Admin Dose Admin Metronidazole 100 ml @ 100 mls/hr Q8H IV 09/03/24 03:00 09/06/24 10:42 100 MLS/HR Levofloxacin/ Dextrose 100 ml @ 100 mls/hr DAILY IV 09/03/24 10:00 09/06/24 09:27 100 MLS/HR Sodium Chloride 1,000 ml @ 100 mls/hr Q10H IV 09/02/24 20:00 09/06/24 14:13 100 MLS/HR Pantoprazole Sodium 40 mg BID IV 09/03/24 10:00 09/06/24 09:23 40 MG Diagnostic Test (Pha) 1 strip ACHS 09/02/24 22:00 09/06/24 10:44 1 STRIP Insulin Human Regular ACHS SC 09/02/24 22:00 09/06/24 10:52 4 UNITS Dextrose 50 ml UD PRN IV 09/02/24 20:00 Norepinephrine Bitartrate 250 ml @ 3.75 mls/hr Q24H IV 09/02/24 21:30 09/02/24 21:30 3.75 MLS/HR Atorvastatin Calcium 40 mg DAILY PO 09/03/24 10:00 09/06/24 09:23 40 MG Finasteride 5 mg DAILY PO 09/04/24 18:00 09/06/24 09:23 5 MG Tamsulosin HCl 0.4 mg QPM PO 09/04/24 18:00 09/05/24 17:33 0.4 MG Docusate Sodium 100 mg BIDPRN PRN PO 09/04/24 17:30 09/06/24 09:23 100 MG Lactulose 30 ml TID PRN PO 09/06/24 14:45 09/06/24 15:15 30 ML objective General Appearance: Alert, Oriented X3, Cooperative, No acute distress, Lungs: Clear to auscultation, Normal air movement, Other Cardiovascular: Regular rate, Normal S1, Normal S2, No murmurs, Gallops, Rubs, Other Abdomen: Normal bowel sounds, Soft, No tenderness, No hepatospenomegaly, No masses, Extremities show no clubbing cyanosis or edema laboratory and microbiology Laboratory Tests 09/06/24 05:00 Test 09/06/24 05:00 Range/Units Serum Glucose 205 H 74-106 mg/dL Problems(with codes): (1) Lactic acid acidosis (2) Weakness (3) Abnormal finding on GI tract imaging (4) Colitis (5) GI bleed (6) Acute diverticulitis (7) Bright red blood per rectum Prognosis Plan Advance diet as tolerated Continue supportive care Replacing K Elective colonoscopy once cardiac cleared as an outpatient, patient was given my contact information Brilinta is on hold; okay to resume anticoagulation if bleeding has stopped Colace 100 mg p.o. bid Pt stable for discharge from GI point of view Dietary Evaluation Review Comments: when medically feasible: 1. Advanced to CCHO-60 Cardiac diet 2. Try ground-up seeds or nuts if desired. 3. Monitor Wt and blood sugar levels Expected Outcomes/Goals: Controlled DM, gradual wt loss Plan discussed with: Patient CC Plasma Assessment Blood Product Administration S: [id number] KAI LEONARDO MD Sep 06, 2024 16:21
--- NOTE | 2024-09-06 17:15 | DVHPN2 ---
Subjective Overnight events noted. Patient denies any episodes of bleeding per rectum. 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 General 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: Alert, Oriented X3, Cooperative, No acute distress, mild distress, moderate distress, severe distress, Other Lungs: Clear to auscultation, Normal air movement, Other Cardiovascular: Regular rate, Normal S1, Normal S2, No murmurs, Gallops, Rubs, Other Abdomen: Normal bowel sounds, Soft, No tenderness, No hepatospenomegaly, No masses, Other Medications Current Medications Medications Dose Ordered Sig/Viktoriya Route Start Time Stop Time Status Last Admin Dose Admin Metronidazole 100 ml @ 100 mls/hr Q8H IV 09/03/24 03:00 09/06/24 10:42 100 MLS/HR Levofloxacin/ Dextrose 100 ml @ 100 mls/hr DAILY IV 09/03/24 10:00 09/06/24 09:27 100 MLS/HR Sodium Chloride 1,000 ml @ 100 mls/hr Q10H IV 09/02/24 20:00 09/06/24 14:13 100 MLS/HR Pantoprazole Sodium 40 mg BID IV 09/03/24 10:00 09/06/24 09:23 40 MG Diagnostic Test (Pha) 1 strip ACHS 09/02/24 22:00 09/06/24 16:51 1 STRIP Insulin Human Regular ACHS SC 09/02/24 22:00 09/06/24 16:58 6 UNITS Dextrose 50 ml UD PRN IV 09/02/24 20:00 Norepinephrine Bitartrate 250 ml @ 3.75 mls/hr Q24H IV 09/02/24 21:30 09/02/24 21:30 3.75 MLS/HR Atorvastatin Calcium 40 mg DAILY PO 09/03/24 10:00 09/06/24 09:23 40 MG Finasteride 5 mg DAILY PO 09/04/24 18:00 09/06/24 09:23 5 MG Tamsulosin HCl 0.4 mg QPM PO 09/04/24 18:00 09/06/24 16:59 0.4 MG Docusate Sodium 100 mg BIDPRN PRN PO 09/04/24 17:30 09/06/24 09:23 100 MG Lactulose 30 ml TID PRN PO 09/06/24 14:45 09/06/24 15:15 30 ML Laboratory Results Laboratory Tests 09/06/24 05:00 Chemistry Test 09/06/24 05:00 Calcium Level 8.5 mg/dL (8.7-10.4) L Magnesium Level 1.4 mg/dL (1.6-2.6) L Microbiology Microbiology Date/Time Source Procedure Growth Status 09/03/24 04:36 Voided Urine Urine Culture - Final Complete 09/02/24 22:04 Stool Stool Culture - Final Complete 09/02/24 22:04 Stool Shiga Toxin I & II - Final Complete 09/02/24 22:04 Stool Clostridium difficile Toxin Assay - Final Complete 09/02/24 17:05 Blood Blood Culture - Preliminary NO GROWTH AFTER 72 HOURS OF INCUBATION. Resulted Assessment/Plan Assessment/Plan 49-year-old male with a known history of coronary artery disease status post PCI with two stents, diabetes mellitus type 2, hypertension who initially presented to the hospital with a bloody stool for last two days with a five episodes of hemorrhagic episodes found to have 1. Acute GI bleed suspect secondary to ischemic colitis of the descending colon and sigmoid colon 2. Acute diverticulitis of the sigmoid colon 3. Hypovolemic/hemorrhagic shock, was on Levophed currently off 4. Acute anemia secondary to acute GI bleed 5. Diabetes mellitus type 2 6. Hypertension 7. CAD status post PCI with two stents -clear liquid diet and advanced as tolerated IV antibiotics, GI consultation appreciated, -cardiology consultation as patient is currently on Brilinta. Plan discussed with: Patient My Orders Orders - DUCLE HOPKINS MD Procedure Category Date Status Time Lactulose Oral PHA 09/06/24 In Process 14:45 Date of Service: Sep 06, 2024 Billing Provider: DULCE HOPKINS MD Common Visit Codes: NOT BILLABLE DULCE HOPKINS MD Sep 06, 2024 17:15
[2024-09-07 01:00] VITALS: BP 124/81; PULSE 79; RESP 17; TEMP 98.1; O2SAT 97
[2024-09-07 05:00] VITALS: BP 127/85; PULSE 79; RESP 16; TEMP 98.1; O2SAT 97
[2024-09-07 08:00] VITALS: PULSE 76; PULSE 78; RESP 16; O2SAT 96
[2024-09-07 09:00] VITALS: BP 139/94; PULSE 84; RESP 18; TEMP 97.7; O2SAT 98
--- NOTE | 2024-09-07 11:06 | DVHPN2 ---
Progress Note - Dictate Date Seen: Sep 07, 2024 Medical Necessity Reason Pt with a Central, PICC or Fol: No Subjective No new complaints, patient resting comfortably His diarrhea episodes are resolved Abdominal pain is improved One small formed dark bowel movement today vital signs Vital Sign Date Time Temp Pulse Resp B/P (MAP) Pulse Ox O2 Delivery O2 Flow Rate FiO2 09/07/24 09:00 97.7 84 18 139/94 (109) 98 97.7 09/07/24 08:00 Room Air* 0 21 Total Intake and Output 09/06/24 09/06/24 09/07/24 15:00 23:00 07:00 Intake Total 600 ml 2900 ml 1990 ml Output Total 1500 ml 800 ml Balance 600 ml 1400 ml 1190 ml medications Current Medications Medications Dose Ordered Sig/Viktoriya Route Start Time Stop Time Status Last Admin Dose Admin Metronidazole 100 ml @ 100 mls/hr Q8H IV 09/03/24 03:00 09/07/24 02:38 100 MLS/HR Levofloxacin/ Dextrose 100 ml @ 100 mls/hr DAILY IV 09/03/24 10:00 09/07/24 09:24 100 MLS/HR Sodium Chloride 1,000 ml @ 100 mls/hr Q10H IV 09/02/24 20:00 09/07/24 00:45 100 MLS/HR Pantoprazole Sodium 40 mg BID IV 09/03/24 10:00 09/07/24 09:24 40 MG Diagnostic Test (Pha) 1 strip ACHS 09/02/24 22:00 09/07/24 06:12 1 STRIP Insulin Human Regular ACHS SC 09/02/24 22:00 09/07/24 06:14 6 UNITS Dextrose 50 ml UD PRN IV 09/02/24 20:00 Norepinephrine Bitartrate 250 ml @ 3.75 mls/hr Q24H IV 09/02/24 21:30 09/02/24 21:30 3.75 MLS/HR Atorvastatin Calcium 40 mg DAILY PO 09/03/24 10:00 09/07/24 09:24 40 MG Finasteride 5 mg DAILY PO 09/04/24 18:00 09/07/24 09:24 5 MG Tamsulosin HCl 0.4 mg QPM PO 09/04/24 18:00 09/07/24 09:24 0.4 MG Docusate Sodium 100 mg BIDPRN PRN PO 09/04/24 17:30 09/06/24 09:23 100 MG Lactulose 30 ml TID PRN PO 09/06/24 14:45 09/06/24 15:15 30 ML objective General Appearance: Alert, Oriented X3, Cooperative, No acute distress, Lungs: Clear to auscultation, Normal air movement, Other Cardiovascular: Regular rate, Normal S1, Normal S2, No murmurs, Gallops, Rubs, Other Abdomen: Normal bowel sounds, Soft, No tenderness, No hepatospenomegaly, No masses, Extremities show no clubbing cyanosis or edema laboratory and microbiology Laboratory Tests 09/06/24 05:00 Test 09/06/24 05:00 Range/Units Serum Glucose 205 H 74-106 mg/dL Problems(with codes): (1) Abnormal finding on GI tract imaging (2) Weakness (3) Lactic acid acidosis (4) Colitis (5) GI bleed Prognosis Plan Advance diet as tolerated Continue supportive care Replacing K Elective colonoscopy once cardiac cleared as an outpatient, patient was given my contact information Brilinta is on hold; okay to resume anticoagulation if bleeding has stopped Colace 100 mg p.o. bid Pt stable for discharge from GI point of view Dietary Evaluation Review Comments: when medically feasible: 1. Advanced to CCHO-60 Cardiac diet 2. Try ground-up seeds or nuts if desired. 3. Monitor Wt and blood sugar levels Expected Outcomes/Goals: Controlled DM, gradual wt loss Plan discussed with: Other (None) CC Plasma Assessment Blood Product Administration S: [id number] KAI LEONARDO MD Sep 07, 2024 11:06
[2024-09-07 12:47] LABS: Chloride 101 mmol/L (98-107); Potassium 4.3 mmol/L (3.5-5.1); Sodium 137 mmol/L (136-145)
[2024-09-07 12:48] LABS: Anion Gap 6 (5-15); Carbon Dioxide 30 mmol/L (20-31)
[2024-09-07 12:53] LABS: BUN/Creatinine Ratio 5.7 (10.0-20.0)
[2024-09-07 12:54] VITALS: BP_SYST 135; BP_SYST 158; BP_DIAS 86; BP_DIAS 89; PULSE 81; PULSE 96; RESP 18; TEMP 96.7; TEMP 98; O2SAT 97; O2SAT 98
[2024-09-07 13:12] LABS: Blood Urea Nitrogen 5 mg/dL (9-23); Calcium 8.5 mg/dL (8.7-10.4); Glucose 295 mg/dL (74-106)
[2024-09-07] MEDS ORDERED: METR-344 PO (15:07)
[2024-09-07] MEDS ORDERED: LEVO500T91 PO (15:07)
--- NOTE | 2024-09-07 15:10 | DVHDS2 ---
Discharge Summary Date of Admission Sep 02, 2024 at 20:00 Date of Discharge: Sep 07, 2024 Labs/Diagnostic Data: Laboratory Results Test 09/07/24 12:04 09/07/24 12:03 09/06/24 05:00 09/03/24 05:35 Sodium Level 137 mmol/L (136-145) Potassium Level 4.3 mmol/L (3.5-5.1) Chloride Level 101 mmol/L (98-107) Carbon Dioxide Level 30 mmol/L (20-31) Anion Gap 6 (5-15) Blood Urea Nitrogen 5 mg/dL (9-23) Creatinine 0.87 mg/dL (0.700-1.30) Glomerular Filtration Rate Calc 105 mL/min (>90) BUN/Creatinine Ratio 5.7 (10.0-20.0) Serum Glucose 295 mg/dL (74-106) Calcium Level 8.5 mg/dL (8.7-10.4) POC Glucose 301 mg/dl (70-106) White Blood Count 8.6 10^3/uL (4.4-10.8) Red Blood Count 3.23 10^6/uL (4.5-5.90) Hemoglobin 9.7 g/dL (13.5-17.5) Hematocrit 28.3 % (41.0-53.0) Mean Corpuscular Volume 87.7 fL (80.0-100.0) Mean Corpuscular Hemoglobin 29.9 pg (28.0-32.0) Mean Corpuscular Hemoglobin Concent 34.1 g/dL (32.0-36.0) Red Cell Distribution Width 14.5 % (11.8-14.3) Platelet Count 293 10^3/uL (140-450) Mean Platelet Volume 7.2 fL (6.9-10.8) Neutrophils (%) (Auto) 59.2 % (37.0-80.0) Lymphocytes (%) (Auto) 32.1 % (10.0-50.0) Monocytes (%) (Auto) 6.3 % (0.0-12.0) Eosinophils (%) (Auto) 1.6 % (0.0-7.0) Basophils (%) (Auto) 0.8 % (0.0-2.0) Neutrophils # (Auto) 5.1 10 ^3/uL (1.6-8.6) Lymphocytes # (Auto) 2.8 10 ^3/uL (0.4-5.4) Monocytes # (Auto) 0.5 10 ^3/uL (0-1.3) Eosinophils # (Auto) 0.1 10 ^3/uL (0-0.8) Basophils # (Auto) 0.1 10 ^3/uL (0-0.2) Nucleated Red Blood Cells 0.1 % Magnesium Level 1.4 mg/dL (1.6-2.6) Prothrombin Time 11.8 sec (9.3-11.8) Prothrombin Time INR 1.13 (0.9-1.15) Lactic Acid Level 1.3 mmol/L (0.4-2.0) Test 09/02/24 22:04 09/02/24 14:29 Stool Occult Blood Positive (Negative) Stool Occult Blood Sample #3 (Negative) Stool for White Cells None seen Activated Partial Thromboplast Time 26.9 SEC (24.5-34.5) Total Bilirubin 0.8 mg/dL (0.2-1.0) Aspartate Amino Transferase (AST) 21 U/L (13-40) Alanine Aminotransferase (ALT) 24 U/L (7-40) Alkaline Phosphatase 74 U/L (46-116) Total Protein 6.1 g/dL (5.7-8.2) Albumin 3.9 g/dL (3.2-4.8) Other Laboratory Tests 09/07/24 12:04 09/06/24 05:00 Brief Hx & Hospital Course: 49-year-old male with a known history of coronary artery disease status post PCI with two stents, diabetes mellitus type 2, hypertension who initially presented to the hospital with a bloody stool for last two days with a five episodes of hemorrhagic episodes found to have 1. Acute GI bleed suspect secondary to ischemic colitis of the descending colon and sigmoid colon 2. Acute diverticulitis of the sigmoid colon 3. Hypovolemic/hemorrhagic shock, was on Levophed currently off 4. Acute anemia secondary to acute GI bleed 5. Diabetes mellitus type 2 6. Hypertension 7. CAD status post PCI with two stents Final Diagnosis/Problems List 49-year-old male with a known history of coronary artery disease status post PCI with two stents, diabetes mellitus type 2, hypertension who initially presented to the hospital with a bloody stool for last two days with a five episodes of hemorrhagic episodes found to have 1. Acute GI bleed suspect secondary to ischemic colitis of the descending colon and sigmoid colon 2. Acute diverticulitis of the sigmoid colon 3. Hypovolemic/hemorrhagic shock, was on Levophed currently off 4. Acute anemia secondary to acute GI bleed 5. Diabetes mellitus type 2 6. Hypertension 7. CAD status post PCI with two stents Discharge Disposition: Home Discharge Instruct/Medications Diet: Cardiac 2g Na,low cholest Diet comment: 1800 ADA diet Activity: No Restrictions, As Tolerated Follow Up/Referral: Follow up with the PCP in 1 week Follow up with the Cardiology ,Dr Harrell in 1 week Follow up with GI Dr. Zay Allen in 1 week. Medications: As prescribed and reconciled. Scheduled Aspirin (Aspirin Low Dose), 81 MG PO DAILY Atorvastatin Calcium (Atorvastatin Calcium), 40 MG PO DAILY Glipizide (Glipizide), 1 TAB PO DAILY Insulin Glargine (Lantus), 15 UNITS SC HS Levofloxacin Hemihydrate (Levaquin 500 Mg), 500 MG PO DAILY Lisinopril (Lisinopril), 5 MG PO DAILY Metformin Hydrochloride (Metformin Hcl), 1 TAB PO BID Metoprolol Succinate (Toprol Xl), 50 MG PO DAILY Metronidazole (Flagyl), 1 TAB PO TID Ticagrelor Base (Brilinta), 90 MG PO BID Scheduled PRN Docusate Sodium (Colace), 1 CAP PO BID PRN Hydrocodone-Acetaminophen (Hydrocodone Bitartrate/AC 5-325 mg), 1 TAB PO Q8HP PRN Senna (Senokot), 2 TAB PO HSPRN PRN Durable Medical Equipment Blood Glucose Monitoring Suppl (D-Care Glucometer Kit/Glu W/Device), KIT XX, (DME) Insulin Syringe/Needle U-100 (Advocate Insulin Syringe/), MG XX HS, (DME) Discharge Statement: "Patient was advised to return to the ER or call 911 if any headaches, dizziness, shortness of breath, chest pain, abdominal pain, bleeding, fevers, or worsening of medical condition. Patient was counseled about treatment plan, medications, possible side effects, patientverbalized understanding. All questions were answered to the best of my ability. This discharge took greater then 30 minutes in planning, reviewing documentation, counseling the patient, and discussing with other team members." ASSESSMENT ASSESSMENT Assessment 49-year-old male with a known history of coronary artery disease status post PCI with two stents, diabetes mellitus type 2, hypertension who initially presented to the hospital with a bloody stool for last two days with a five episodes of hemorrhagic episodes found to have 1. Acute GI bleed suspect secondary to ischemic colitis of the descending colon and sigmoid colon 2. Acute diverticulitis of the sigmoid colon 3. Hypovolemic/hemorrhagic shock, was on Levophed currently off 4. Acute anemia secondary to acute GI bleed 5. Diabetes mellitus type 2 6. Hypertension 7. CAD status post PCI with two stents DULCE HOPKINS MD Sep 07, 2024 15:10
== END 2024-09-07 17:00 | disposition home or self-care (01) | DRG 393 ==
LOC: ER 13:41 → OVERFLOW 20:00 → TELE-CENTR 09-03 16:52
PROVIDERS: ADMIT Internal Medicine; ATTEND Internal Medicine
PROC: 30233N1 Transfusion of Nonautologous Red Blood Cells into Peripheral Vein, Percutaneous Approach (ICD-10-PCS; principal; 2024-09-02)
DX: K55.9 Vascular disorder of intestine, unspecified (principal); K57.33 Diverticulitis of large intestine without perforation or abscess with bleeding; R57.8 Other shock; E87.20 Acidosis, unspecified; D62 Acute posthemorrhagic anemia; K52.9 Noninfective gastroenteritis and colitis, unspecified; E11.9 Type 2 diabetes mellitus without complications; E86.1 Hypovolemia; I10 Essential (primary) hypertension; K76.0 Fatty (change of) liver, not elsewhere classified; K80.20 Calculus of gallbladder without cholecystitis without obstruction; I25.10 Atherosclerotic heart disease of native coronary artery without angina pectoris; I25.2 Old myocardial infarction; Z79.82 Long term (current) use of aspirin; Z79.84 Long term (current) use of oral hypoglycemic drugs; Z87.891 Personal history of nicotine dependence; Z95.5 Presence of coronary angioplasty implant and graft
CPT/HCPCS: 36415; 74177; 80048; 80053; 82270; 82962; 83605; 83735; 85014; 85018; 85025; 85048; 85610; 85730; 86850; 86900; 86901; 86920; 87040; 87045; 87086; 87427; 87493; 96365; 96375; G0378; J1815; J1956; J2470; J3490

== ENCOUNTER → 2024-12-11 | Day surgery (SDC) | payer BC ==
[~2024-12-11] VITALS: Ht 182.9 cm; Wt 108.9 kg
[2024-12-11] VITALS (8 sets, daily range): BP systolic 106–158; BP diastolic 69–102; PULSE 86–94; RESP 12–19; TEMP 98.4; O2SAT 93–97
[~2024-12-11] MED LIST changes: +ANGIOMAX 250 MG VIAL IV ONE; -ATOR20TA50 PO; -DOCU-94 PO; +GLIP10TA9 PO; -GLIP5TAB21 PO; +HEPARIN SODIUM (PORCINE) 5000 UNITS/ML 1ML VIAL ONE; -HYDR-4902 PO; -INSLANTI SC; -INSU-567 XX; +IODIXANOL 320MG/ML 100ML BTL IV ONE; +LIDOCAINE 2%HCL (LOCAL ANESTH.) INJ 20ML MDV ONE; -METF-370 PO; +MIDAZOLAM HCL 2MG/2ML 2ml VIAL (1mg/ml) ONE; -SENN-58 PO; +SODIUM CHL 0.9% 0 ML ONE; +VERAPAMIL 2.5MG/ML INJ 2ML VIAL IV ONE; +fentaNYL CITRATE 100 MCG/2 ML VL ONE
--- NOTE | 2024-12-11 12:56 | DVHOP2 ---
Operative Report - 2 Report Details Date: 12/11/24 Preop Diagnosis: CAD Postop Diagnosis: Mild CAD Surgeon: Jah Harrell MD Anesthesiologist: Conscious sedation Anesthesia: Mac, Local Consent: The patient was informed of the risks and benefits of the procedure. These include but are not limited to complications of anesthesia, postoperative infection, incomplete relief of symptoms, recurrence of symptoms, damage to blood vessels, nerves and tendons, deep venous thrombosis, pulmonary embolism and possible need for repeat surgery in the future. Complications: No complications Findings: Mild CAD Indications for Surgery: Chest pain Name of Procedure Performed Left heart catheterization. Bilateral cine coronary angiography. Left ventriculography. Procedure Details Procedure Details: Prior local anesthesia with 2% lidocaine to the right wrist and full informed consent obtained the patient was prepped and draped in usual fashion and using an ultrasound device we found a small radial artery. We opted to obtain access into the ulnar artery. We placed a six Uzbek sheath into the ulnar and a tiger catheter to cannulate the left ventricle right and left coronary sinuses without complications Hemodynamics: Aortic blood pressure was 130/70. End-diastolic pressure was six. There was no gradient across the aortic valve on pullback. Coronary anatomy: The RCA is a large dominant vessel it has been stented previously. There was no stenosis in its proximal mid or distal segments. PDA and posterolateral branches are normal. Left main is large and normal. The circumflex is codominant. Gives off two marginal branches that are large and normal. The LAD is a large vessel with a mid 22 25% stenosis. No critical lesions p resent. Ventriculography in the DOLL projection shows an EF of 55%. Impression: Normal left ventricular end-diastolic pressure at rest with normal ejection fraction. Mild CAD is noted. No need for revascularization. Recommendations medical therapy is warranted continue risk factor modification. Condition Good Disposition Home Date of Service: Dec 11, 2024 Billing Provider: JAH HARRELL Sr., MD Cardiology Common Codes: 12222-SYHWUKD INP/OBS CARE (High) Cardiology Procedure Codes: 36603-KAFX HEART CATH W/INTRA INJ JAH HARRELL Sr., MD Dec 11, 2024 12:56
== END | disposition home or self-care (01) ==
LOC: CATH 08:58
PROVIDERS: ATTEND Internal Medicine
DX: I25.10 Atherosclerotic heart disease of native coronary artery without angina pectoris (principal); Z79.82 Long term (current) use of aspirin; Z79.84 Long term (current) use of oral hypoglycemic drugs; Z79.899 Other long term (current) drug therapy; Z95.5 Presence of coronary angioplasty implant and graft; Z87.891 Personal history of nicotine dependence
CPT/HCPCS: 93458; C1769; C1894; J1644; J2250; J3010; J7030; Q9967; 99152